=== PATIENT | male | born 1960 | race Caucasian/White ===

== ENCOUNTER 2020-10-22 13:23 | Observation (INO) | payer MEDICAID ==
[2020-10-22 13:53] LABS: BASOPHILS # (AUTO) 0.1 10^3/uL (0.0-0.1); BASOPHILS % (AUTO) 0.9 %; EOSINOPHILS # (AUTO) 0.3 10^3/uL (0.0-0.7); EOSINOPHILS % (AUTO) 3.1 %; HCT - HEMATOCRIT 46.2 % (42.0-52.0); HGB - HEMOGLOBIN 14.8 g/dL (14.0-18.0); LYMPHOCYTES # (AUTO) 2.5 10^3/uL (1.5-3.5); LYMPHOCYTES % (AUTO) 29.7 %; MEAN CORPUSCULAR HEMOGLOBIN 26.2 pg (27.0-31.0); MEAN CORPUSCULAR VOLUME 81.8 fL (80.0-94.0); MEAN PLATELET VOLUME 9.3 fL (7.4-11.4); MONOCYTES # (AUTO) 0.7 10^3/uL (0.0-1.0); NEUTROPHILS % (AUTO) 58.1 %; PLT - PLATELET COUNT 429 10^3/uL (130-450); RED BLOOD COUNT 5.65 10^6/uL (4.70-6.10); RED CELL DISTRIBUTION WIDTH 16.6 % (12.0-15.0); WHITE BLOOD COUNT 8.5 x10^3/uL (4.8-10.8)
[2020-10-22 14:05] LABS: ALBUMIN 4.2 g/dL (3.2-5.5); ALBUMIN/GLOBULIN RATIO 1.4 (1.0-2.2); BILIRUBIN,TOTAL 0.4 mg/dL (0.2-1.0); CALCIUM 9.2 mg/dL (8.5-10.3); CREATININE 0.8 mg/dL (0.6-1.2); POTASSIUM 3.8 mmol/L (3.5-5.0); TOTAL PROTEIN 7.3 g/dL (6.7-8.2)
--- NOTE | 2020-10-22 15:15 | ED Physician Documentation ---
PD HPI ABD PAIN - Stated complaint Stated Complaint: ABD PAIN - Chief complaint Chief Complaint: Abd Pain - History obtained from History obtained from: Patient - History of Present Illness Timing - onset: How many weeks ago (3) Timing - duration: Weeks (3) Timing - details: Gradual onset, Waxing and waning Pain level max: 10 Pain level now: 4 Quality: Aching, Pain Location: No: All over / everywhere, RUQ, Epigastric, LUQ, Periumbilical, RLQ, Suprapubic, LLQ, Other Improved by: Other (nothing) Worsened by: Eating Associated symptoms: Nausea, Constipation. No: Vomiting, Hematemesis, Diarrhea, Melena, Hematochezia, Dysuria, Hematuria Recently seen: Not recently seen - Additional information Additional information: Patient is a 59-year-old male who presents to the emergency department with epigastric abdominal pain, intermittent for the past 3 weeks. Worse with eating and drinking, nothing makes it better. Intermittent nausea but no vomiting. No diarrhea. Has chronic constipation. Patient does smoke, denies any significant alcohol use. Does not use any anti-inflammatories. No history of ulcers. Pain is nonradiating. Review of Systems Ten Systems: 10 systems reviewed and negative Respiratory: denies: Cough GI: reports: Nausea, Constipation. denies: Vomiting, Diarrhea Skin: denies: Rash Musculoskeletal: denies: Neck pain, Back pain Neurologic: denies: Headache PD PAST MEDICAL HISTORY - Past Medical History Past Medical History: Yes Psych: Depression - Past Surgical History Past Surgical History: No - Present Medications Home Medications: Ambulatory Orders Medication Instructions Recorded Confirmed Fluoxetine HCl [Prozac] 1 tab PO DAILY 10/22/20 10/22/20 - Allergies Allergies/Adverse Reactions: Allergies Allergy/AdvReac Type Severity Reaction Status Date / Time No Known Drug Allergies Allergy Verified 10/22/20 13:27 - Living Situation Living Arrangement: reports: At home - Social History Does the pt smoke?: Yes Does the pt have substance abuse?: No - Family History Family history: reports: Non contributory PD ED PE NORMAL - Vitals Vital signs reviewed: Yes - General General: Alert and oriented X 3, No acute distress - HEENT HEENT: PERRL, Moist mucous membranes - Neck Neck: Supple, no meningeal sign - Cardiac Cardiac: RRR, Strong equal pulses - Respiratory Respiratory: No respiratory distress, Clear bilaterally - Abdomen Abdomen: Soft, Non distended, Other (Mild tenderness to palpation epigastric and right upper quadrant. No peritoneal signs.) - Back Back: No CVA TTP - Derm Derm: Warm and dry - Extremities Extremities: No edema - Neuro Neuro: Alert and oriented X 3 - Psych Psych: Normal mood, Normal affect Results - Vitals Vitals: Vital Signs - 24 hr 10/22/20 10/22/20 10/22/20 13:28 16:09 17:50 Temperature 36.5 C 36.5 C Heart Rate 76 60 67 Respiratory 16 16 16 Rate Blood Pressure 160/100 H 130/72 149/86 H O2 Saturation 98 100 98 Oxygen O2 Source Room air - Labs Labs: Laboratory Tests 10/22/20 10/22/20 10/22/20 13:32 13:48 13:48 WBC 8.5 RBC 5.65 Hgb 14.8 Hct 46.2 MCV 81.8 MCH 26.2 L MCHC 32.0 RDW 16.6 H Plt Count 429 MPV 9.3 Neut # (Auto) 5.0 Lymph # (Auto) 2.5 [place] # (Auto) 0.7 Eos # (Auto) 0.3 Baso # (Auto) 0.1 Absolute Nucleated RBC 0.00 Nucleated RBC % 0.0 Sodium 139 Potassium 3.8 Chloride 104 Carbon Dioxide 26 Anion Gap 9.0 BUN 9 Creatinine 0.8 Estimated GFR (MDRD) 99 Glucose 98 Calcium 9.2 Total Bilirubin 0.4 AST 39 ALT 23 Alkaline Phosphatase 103 Total Protein 7.3 Albumin 4.2 Globulin 3.1 Albumin/Globulin Ratio 1.4 Lipase 38 Urine Color YELLOW Urine Clarity CLEAR Urine pH 6.5 Ur Specific Landis 1.020 Urine Protein NEGATIVE Urine Glucose (UA) NEGATIVE Urine Ketones NEGATIVE Urine Occult Blood NEGATIVE Urine Nitrite NEGATIVE Urine Bilirubin NEGATIVE Urine Urobilinogen 0.2 (NORMAL) Ur Leukocyte Esterase NEGATIVE Ur Microscopic Review NOT INDICATED Urine Culture Comments NOT INDICATED Nasal Adenovirus (PCR) Nasal B. parapertussis DNA (PCR) Nasal Coronavir 229E PCR Nasal Coronavir HKU1 PCR Nasal Coronavir NL63 PCR Nasal Coronavir OC43 PCR Nasal Enterovir/Rhinovir PCR Nasal Influenza B PCR Nasal Influenza A PCR Nasal Parainfluen 1 PCR Nasal Parainfluen 2 PCR Nasal Parainfluen 3 PCR Nasal Parainfluen 4 PCR Nasal RSV (PCR) Nasal B.pertussis DNA PCR Nasal C.pneumoniae (PCR) Gus Human Metapneumo PCR Nasal M.pneumoniae (PCR) Nasal SARS-CoV-2 (PCR) 10/22/20 17:47 WBC RBC Hgb Hct MCV MCH MCHC RDW Plt Count MPV Neut # (Auto) Lymph # (Auto) [place]ar # (Auto) Eos # (Auto) Baso # (Auto) Absolute Nucleated RBC Nucleated RBC % Sodium Potassium Chloride Carbon Dioxide Anion Gap BUN Creatinine Estimated GFR (MDRD) Glucose Calcium Total Bilirubin AST ALT Alkaline Phosphatase Total Protein Albumin Globulin Albumin/Globulin Ratio Lipase Urine Color Urine Clarity Urine pH Ur Specific Landis Urine Protein Urine Glucose (UA) Urine Ketones Urine Occult Blood Urine Nitrite Urine Bilirubin Urine Urobilinogen Ur Leukocyte Esterase Ur Microscopic Review Urine Culture Comments Nasal Adenovirus (PCR) NOT DETECTED Nasal B. parapertussis DNA (PCR) NOT DETECTED Nasal Coronavir 229E PCR NOT DETECTED Nasal Coronavir HKU1 PCR NOT DETECTED Nasal Coronavir NL63 PCR NOT DETECTED Nasal Coronavir OC43 PCR NOT DETECTED Nasal Enterovir/Rhinovir PCR NOT DETECTED Nasal Influenza B PCR NOT DETECTED Nasal Influenza A PCR NOT DETECTED Nasal Parainfluen 1 PCR NOT DETECTED Nasal Parainfluen 2 PCR NOT DETECTED Nasal Parainfluen 3 PCR NOT DETECTED Nasal Parainfluen 4 PCR NOT DETECTED Nasal RSV (PCR) NOT DETECTED Nasal B.pertussis DNA PCR NOT DETECTED Nasal C.pneumoniae (PCR) NOT DETECTED Gus Human Metapneumo PCR NOT DETECTED Nasal M.pneumoniae (PCR) NOT DETECTED Nasal SARS-CoV-2 (PCR) NOT DETECTED - Rads (name of study) CT abd/pelvis Radiology: Final report received, EMP read contemporaneously, See rad report RUQ US Radiology: Final report received, EMP read contemporaneously, See rad report PD MEDICAL DECISION MAKING - ED course Complexity details: reviewed results, re-evaluated patient, considered differential, d/w patient, d/w rewards consultant ED course: 59-year-old male with abdominal pain. Found to have a spiculated right lower lobe mass with additional nodules. Appears to be consistent with malignancy also has nodules within the lungs consistent with metastatic disease. Likely metastatic disease in the liver as well. Patient does have cholelithiasis, there is gallbladder wall thickening, possible cholecystitis. Discussed the case with Dr. Reeder, general surgery who came and evaluated the patient in the emergency department. Will place on antibiotics and place in observation for HIDA scan tomorrow and monitoring of his abd pain. This document was made in part using voice recognition software. While efforts are made to proofread this document, sound alike and grammatical errors may occur. CT A/P IMPRESSION: 1. Spiculated right lower lobe mass with adjacent nodules as described above. Overall appearance is most consistent with malignancy, such as primary lung malignancy. In addition, multiple additional nodules are identified within visualized portions of the lungs consistent with metastatic disease. 2. Multiple focal and confluent areas of low attenuation and abnormal enhancement are noted within the liver. Even above findings, appearance is most consistent with metastatic disease. 3.. Diverticulosis. RUQ US: IMPRESSION: 1. Cholelithiasis with gallbladder wall thickening. No pericholecystic fluid. Findings are equivocal for acute cholecystitis, and correlation with clinical exam findings and laboratory values is recommended. 2. Heterogeneous masslike lesions in the liver are partially imaged, but are suspicious for metastatic disease. These were also seen on CT of the abdomen/pelvis performed earlier the same day. Departure - Departure Disposition: ED Place in Observation Clinical Impression: Right upper quadrant pain, Acute cholecystitis, Lung mass Metastatic disease Qualifiers: Area of secondary neoplastic involvement: unspecified site Qualified Code(s): C79.9 - Secondary malignant neoplasm of unspecified site Condition: Stable Discharge Date/Time: 10/22/20 19:01
[2020-10-22] MEDS ORDERED: IOVERSOL 320 100 ML VIAL IVP ONE (15:16)
[2020-10-22 15:33] LABS: BILIRUBIN,URINE NEGATIVE (NEGATIVE); GLUCOSE, URINE (UA) NEGATIVE (NEGATIVE); KETONES,URINE (UA) NEGATIVE (NEGATIVE); LEUKOCYTE ESTERASE, URINE NEGATIVE (NEGATIVE); NITRITE,URINE NEGATIVE (NEGATIVE); OCCULT BLOOD,URINE NEGATIVE (NEGATIVE); PH,URINE 6.5 PH (5.0-7.5); PROTEIN,URINE NEGATIVE (NEGATIVE); UROBILINOGEN,URINE 0.2 (NORMAL) E.U./dL (NORMAL)
[2020-10-22 15:36] LABS: CLARITY,URINE CLEAR (CLEAR)
--- NOTE | 2020-10-22 16:46 | CT Report ---
PROCEDURE: Abdomen/Pelvis W INDICATIONS: abd pain, epigastric x 3 weeks CONTRAST: IV CONTRAST: Optiray 320 ml: 100 PO CONTRAST: *NO PO CONTRAST TECHNIQUE: After the administration of IV contrast, 5 mm thick sections acquired from the diaphragms to the symp hysis. 5 mm thick coronal and sagittal reformats were acquired. For radiation dose reduction, the f ollowing was used: automated exposure control, adjustment of mA and/or kV according to patient size. COMPARISON: None. FINDINGS: Image quality: Excellent. ABDOMEN: Lung bases: There is a spiculated right lower lobe mass measuring 3.5 x 2.4 cm. Additional smaller no dules are identified adjacent to the mass. In addition, nodules are also identified within the partia lly visualized left upper lobe and right middle lobe. Multiple nodules are also present within the le ft lower lobe the largest on series 4 image 21 measuring approximately 7 mm. Heart size is normal. Solid organs: Liver is enlarged. Liver demonstrates multiple focal as well as confluent areas of low attenuation the largest in the anterior liver measuring 2.6 x 2.6 cm. Gallbladder demonstrates ill-de fined areas of increased density within the lumen without wall thickening. Biliary system is non dil ated. Pancreas enhances normally. No adrenal nodules. Kidneys demonstrate normal size and enhancem ent, without hydronephrosis. Simple right renal cyst is noted. Peritoneum and bowel: Bowel loops demonstrate normal wall thickness and caliber. No free fluid or a ir. Scattered colonic diverticula are present. Appendix is within normal limits and demonstrates mil d contrast enhancement. Nodes and vessels: No retroperitoneal or mesenteric adenopathy by size criteria. Aorta and inferior vena cava are normal in size. Miscellaneous: No ventral hernias. Mild hiatal hernia is present. PELVIS: Genitourinary: Bladder wall thickness is normal. Miscellaneous: No inguinal hernias or adenopathy. Bones: No suspicious bony lesions. No vertebral body compression fractures. IMPRESSION: 1. Spiculated right lower lobe mass with adjacent nodules as described above. Overall appearance is m ost consistent with malignancy, such as primary lung malignancy. In addition, multiple additional nod ules are identified within visualized portions of the lungs consistent with metastatic disease. 2. Multiple focal and confluent areas of low attenuation and abnormal enhancement are noted within th e liver. Even above findings, appearance is most consistent with metastatic disease. 3. Diverticulosis. Reviewed by: Jen Haile MD on 10/22/2020 4:44 PM PDT Approved by: Jen Haile MD on 10/22/2020 4:44 PM PDT Station ID: [id number]
--- NOTE | 2020-10-22 17:24 | Ultrasound Report ---
PROCEDURE: Abdomen Limited INDICATIONS: RUQ abd pain x 3 weeks TECHNIQUE: Real-time focused scanning was performed of the abdomen, with image documentation. COMPARISON: CT abdomen/pelvis performed earlier the same day. FINDINGS: The liver appears heterogeneous and contains multiple masslike lesions, as seen on CT performed earli er the same day. The liver is incompletely evaluated on this exam that is tailored for evaluation of the gallbladder. Tiny echogenic gallstones are seen in the gallbladder fundus. There is diffuse gallbladder wall thick ening to 5 mm. No pericholecystic fluid is seen. Sonographic Sylvester sign is negative. The common hepatic duct and common bile duct are normal in size. IMPRESSION: 1. Cholelithiasis with gallbladder wall thickening. No pericholecystic fluid. Findings are equivocal for acute cholecystitis, and correlation with clinical exam findings and laboratory values is recomm ended. 2. Heterogeneous masslike lesions in the liver are partially imaged, but are suspicious for metastat ic disease. These were also seen on CT of the abdomen/pelvis performed earlier the same day. Preliminary findings were conveyed to the ordering provider, Dr. Salazar, by the travel trailer components assembler immediate ly following the examination. Reviewed by: Rodolfo Hubbard MD on 10/22/2020 4:23 PM [facility] Approved by: Rodolfo Hubbard MD on 10/22/2020 4:23 PM LIZ Station ID: [id number]
[2020-10-22] MEDS ORDERED: PIPERACILLIN/TAZOBACTAM 3.375 GM in SODIUM CHLORIDE 0.9% MINIBAG 100 ML IV STA (17:37)
--- NOTE | 2020-10-22 18:33 | HISTORY & PHYSICAL EXAMINATION ---
Chief Complaint - Chief Complaint Chief Complaint: 3 weeks epigastric right upper quadrant pain with loss of appetite History of Present Illness - Admitted From Admitted From:: ED - History Obtained From Records Reviewed: yes History obtained from: pt Exam Limitations: none - History of Present Illness HPI Comment/Other: 3 weeks of epigastric pain and loss of appetite. Distant history of pneumonia and long standing history mild lung troubles without significant asthma or change. Seen in the ED. Imaging concerning for metastatic lung cancer to the liver. Possible gallbladder inflammation. History - Past Medical History Psych: reports: Depression - Family & Social History Living arrangement: At home Meds/Allgy - Home Medications Home Medications: Ambulatory Orders Medication Instructions Recorded Confirmed Fluoxetine HCl [Prozac] 1 tab PO DAILY 10/22/20 10/22/20 - Allergies Allergies/Adverse Reactions: Allergies Allergy/AdvReac Type Severity Reaction Status Date / Time No Known Drug Allergies Allergy Verified 10/22/20 13:27 Review of Systems - Other Findings Other Findings: 10 pt ros as above otherwise unremarkable no significant weight loss Exam - Vital Signs Reviewed Vital Signs: Yes Vital Signs: Vital Signs x48h Temp Pulse Resp BP Pulse Ox 10/22/20 17:50 67 16 149/86 H 98 10/22/20 16:09 36.5 C 60 16 130/72 100 10/22/20 13:28 36.5 C 76 16 160/100 H 98 - Physical Exam General Appearance: positive: No acute distress, Alert Eyes Bilateral: positive: PERRL, EOMI, No scleral icterus ENT: positive: No signs of dehydration Neck: positive: No JVD Respiratory: positive: No respiratory distress, Breath sounds nml Cardiovascular: positive: Regular rate & rhythm Abdomen: positive: Tenderness (mild epigastric ruq) Neurologic/Psychiatric: positive: Oriented x3 Conclusion/Plan - Problem List (1) Right upper quadrant pain Conclusion/Plan: He has had significant right upper quadrant / epigastric abdominal pain with loss of appetite x 3 weeks. possible metastatic lung cancer without pulmonary symptoms. Plan admit for pain management, ivf and further work up. Plan ct chest, abdomen/ pelvis with contrast and hida scan. If hida scan shows no filling plan cholecystectomy with possible liver biopsy. - Lab Results Fish Bones: 10/22/20 13:48 10/22/20 13:48 - Diagnostic Imaging Results Diagnostic Imaging Results: positive: Read independently (small gallstones with no apparent gallbladder obstruction. appearance of signicant metastatic liver disease)
[2020-10-22] MEDS ORDERED: ONDANSETRON 4 MG/2 ML VIAL IVP PRN (18:38)
[2020-10-22] MEDS ORDERED: HYDROmorphone 0.5 MG/0.5 ML SYRINGE IVP PRN (18:38)
[2020-10-22] MEDS ORDERED: SODIUM CHLORIDE FLUSH 0.9% 10 ML SYRINGE IVP PRN (18:38)
[2020-10-22] MEDS ORDERED: ZOLPIDEM 5 MG TABLET PO PRN (18:38)
[2020-10-22] MEDS ORDERED: PROCHLORPERAZINE 10 MG/2 ML VIAL IVP PRN (18:38)
[2020-10-22] MEDS ORDERED: ACETAMINOPHEN 325 MG TABLET PO PRN (18:38)
[2020-10-22] MEDS ORDERED: ONDANSETRON ODT 4 MG TABLET TL PRN (18:38)
[2020-10-22 18:53] LABS: B. PARAPERTUSSIS- RESP PCR PAN NOT DETECTED; B. PERTUSSIS- RESP PCR PANEL NOT DETECTED; C. PNEUMONIAE- RESP PCR PANEL NOT DETECTED; CORONAVIRUS 229E-RESP PCR NOT DETECTED; CORONAVIRUS HKU1-RESP PCR NOT DETECTED; CORONAVIRUS NL63-RESP PCR NOT DETECTED; CORONAVIRUS OC43-RESP PCR NOT DETECTED; HUMAN METAPNEUMOVIRUS NOT DETECTED; INFLUENZA A- RESP PCR PANEL NOT DETECTED; INFLUENZA B - RESP PCR PANEL NOT DETECTED; M. PNEUMONIAE- RESP PCR PANEL NOT DETECTED; PARAINFLUENZA VIRUS 1 NOT DETECTED; PARAINFLUENZA VIRUS 2 NOT DETECTED; PARAINFLUENZA VIRUS 3 NOT DETECTED; PARAINFLUENZA VIRUS 4 NOT DETECTED; RHINOVIRUS/ENTEROVIRUS NOT DETECTED; RSV- RESP PCR PANEL NOT DETECTED; SARS-CoV-2 -RESP PCR PANEL NOT DETECTED
[2020-10-22] MEDS: D5.45NS W/20 MEQ KCL 1,000 ML IV SCH (19:37)
[2020-10-22] MEDS: IOVERSOL 320 100 ML VIAL IVP ONE (20:54)
[2020-10-23] MEDS: D5.45NS W/20 MEQ KCL 1,000 ML IV SCH ×3 (02:53→22:40)
[2020-10-23] MEDS: SODIUM CHLORIDE FLUSH 0.9% 10 ML SYRINGE IVP SCH ×3 (02:55→17:55)
[2020-10-23] MEDS ORDERED: FLUoxetine 10 MG CAPSULE PO SCH (09:00)
[2020-10-23] MEDS: HYDROcod/ACETAM 5/325 MG TABLET PO PRN (09:46)
[2020-10-23] MEDS ORDERED: MORPHINE 2 MG/ML CARPUJECT IVP STA (16:12)
[2020-10-23] MEDS ORDERED: IOVERSOL 320 100 ML VIAL IVP ONE (17:09)
--- NOTE | 2020-10-23 17:15 | PROVIDER PROGRESS NOTE ---
Subjective - Subjective Pt reports feeling: No change (mild upper abdominal discomfort) Objective - Vital Signs/Intake & Output Reviewed Vital Signs: Yes Vital Signs: Vital Signs x48h Temp Pulse Resp BP Pulse Ox 10/23/20 13:00 36.5 C 51 L 16 123/74 97 Intake & Output: Intake & Output 10/20/20 10/21/20 10/22/20 10/23/20 23:59 23:59 23:59 23:59 Intake Total 100 3350.000 Balance 100 3350.000 - Objective General Appearance: positive: No acute distress, Alert Eyes Bilateral: positive: PERRL, EOMI, No scleral icterus Neck: positive: No JVD Respiratory: positive: No respiratory distress Abdomen: positive: No distention Neurologic/Psychiatric: positive: Oriented x3 - Lab Results Fish Bones: 10/22/20 13:48 10/22/20 13:48 Other Labs: Lab Results x24hrs 10/22/20 Range/Units 17:47 Nasal Adenovirus (PCR) NOT DETECTED Nasal B. parapertussis DNA (PCR) NOT DETECTED Nasal Coronavir 229E PCR NOT DETECTED Nasal Coronavir HKU1 PCR NOT DETECTED Nasal Coronavir NL63 PCR NOT DETECTED Nasal Coronavir OC43 PCR NOT DETECTED Nasal Enterovir/Rhinovir PCR NOT DETECTED Nasal Influenza B PCR NOT DETECTED Nasal Influenza A PCR NOT DETECTED Nasal Parainfluen 1 PCR NOT DETECTED Nasal Parainfluen 2 PCR NOT DETECTED Nasal Parainfluen 3 PCR NOT DETECTED Nasal Parainfluen 4 PCR NOT DETECTED Nasal RSV (PCR) NOT DETECTED Nasal B.pertussis DNA PCR NOT DETECTED Nasal C.pneumoniae (PCR) NOT DETECTED Gus Human Metapneumo PCR NOT DETECTED Nasal M.pneumoniae (PCR) NOT DETECTED Nasal SARS-CoV-2 (PCR) NOT DETECTED Assessment/Plan - Problem List (1) Right upper quadrant pain Impression: He is currently having his hida scan. If his gallbladder drains surgery is not indicated and further work up for possible metastatic cancer is recommend. He has not been doing well at home with poor appetite and pain. Urgent work up is recommended to allow for more urgent treatment. If metastatic cancer is confirmed with further imaging plan oncology consult and IR consult for biopsy
--- NOTE | 2020-10-23 17:43 | Nuclear Medicine Report ---
PROCEDURE: Hepatobiliary HIDA w/ Rx INDICATIONS: possible gallbladder obstruction RADIOPHARMACEUTICAL: 5.3 mCi Tc-99m meprofenin i.v. TECHNIQUE: Following intravenous administration of Tc-99m meprofenin, sequential anterior abdominal images were obtained. Sequential imaging was continued for 30 minutes after the start of CCK infusio n. Gallbladder ejection fraction was not calculated because the gallbladder did not receive excreted radioisotope over the course of the. COMPARISON: Prior CT scanning documenting the gallbladder to be in expected position, 10/22/2020. FINDINGS: Biliary scan: There is mildly heterogeneous tracer uptake and excretion by the liver in this patient with CT-documented hepatic metastatic disease.. There is normal visualization of the intrahepatic d ucts, common bile duct, but the gallbladder was not visualized. There is normal tracer transit into the duodenum and thereafter into the small bowel. IMPRESSION: 1. Near-normal hepatocellular phase of the imaging, in this patient with CT documented multifocal hep atic metastatic disease. This produces mild heterogeneity in the hepatocellular phase of liver imagin g. 2. . Normal hepatocellular excretion into the common duct and at no point over the course of the exam ination was a normal-appearing gallbladder seen. The gallbladder has been documented as being in an e xpected position by CT scanning recently performed. It remains possible that metastatic disease has i mpingement on the gallbladder outflow, and on review of the prior CT scanning no calcified gallstone can be seen within the gallbladder lumen.. Reviewed by: Eze Pradhan MD on 10/23/2020 5:42 PM PDT Approved by: Eze Pradhan MD on 10/23/2020 5:42 PM PDT Station ID: [id number]
[2020-10-23] MEDS: IOVERSOL 320 100 ML VIAL IVP ONE (23:26)
[2020-10-24] MEDS: D5.45NS W/20 MEQ KCL 1,000 ML IV SCH ×3 (06:13→22:28)
[2020-10-24] MEDS: SODIUM CHLORIDE FLUSH 0.9% 10 ML SYRINGE IVP SCH ×3 (06:14→16:29)
[2020-10-24] MEDS: HYDROcod/ACETAM 5/325 MG TABLET PO PRN ×2 (08:13→20:47)
[2020-10-24] MEDS: FLUoxetine 10 MG CAPSULE PO SCH (08:13)
[2020-10-24] MEDS: DOCUSATE SODIUM 250 MG CAPSULE PO SCH (08:13)
--- NOTE | 2020-10-24 09:47 | CT Report ---
PROCEDURE: CHEST W INDICATIONS: appearance of lung cancer on CT abd CONTRAST: IV CONTRAST: Optiray 320 ml: 100 PO CONTRAST: *NO PO CONTRAST TECHNIQUE: After the administration of intravenous contrast, images were acquired from the pulmonary apices to t he posterior costophrenic angles. Multiplanar MIP reformats were acquired. For radiation dose reduc tion, the following was used: automated exposure control, adjustment of mA and/or kV according to pa tient size. COMPARISON: CT abdomen/pelvis one day ago reviewed.. FINDINGS: Image quality: Excellent. Lungs and pleura: No acute air space opacities are seen that would suggest pneumonia. Rather, brandon us bilateral pulmonary nodules that are small in size ranging from several millimeters to slightly ov er 1 cm are present bilaterally, upper and lower lungs, in addition to a dominant 3.5 cm peripheral r ight lower lobe lung mass, abutting the pleural surface but not invading the chest wall. This is best seen on CT series 12 image 273.. No pleural effusions or pneumothorax. Central and peripheral airw ays are patent and normal in caliber. Mediastinum: Heart size is normal. No pericardial effusion. No mediastinal or hilar adenopathy by size criteria. Thoracic aorta and central pulmonary arteries are normal in size. Esophagus is amish l in caliber. No hiatal hernia. Bones and chest wall: There is mild heterogeneity of the radiodensity of the axial skeleton, and a de nsely sclerotic bone lesion is seen at the junction of the upper and middle thirds of the thoracic sp ine. By appearance that represents a osteoblastic metastatic bone lesion. No vertebral body compress ion fractures. No axillary or supraclavicular adenopathy by size criteria. The thyroid is normal in size and there are no incidental findings.. Abdomen: Visualized upper abdominal solid organs appear normal except for multifocal hepatic metasta tic disease seen by CT scanning of the abdomen/pelvis yesterday. Upper abdominal bowel loops are nor mal in caliber. IMPRESSION: Dominant 3.5 cm far peripheral right lower lobe lung mass abutting the pleural surface without interv ening lung parenchyma, which appears accessible for percutaneous CT-guided biopsy of that mass, at lo w risk. Numerous additional lung lesions are present comprised of small ovoid and rounded masses, cooper aterally. This appears to represent relatively extensive pulmonary metastatic disease. Additionally, there is a finding previously documented one day ago of multifocal hepatic presumed met astatic disease, without associated biliary distention. No ascites or pleural effusions are found. No mediastinal or hilar adenopathy is seen. Findings were discussed with the ordering surgeon, Dr. Reeder, and lung mass biopsy at the right lowe r lobe is anticipated for 10/25/2020. Lung biopsy approach is considered significantly safer for biops y than the liver lesions, especially given the position and size of the lung mass discussed above. Reviewed by: Eze Pradhan MD on 10/24/2020 9:46 AM PDT Approved by: Eze Pradhan MD on 10/24/2020 9:46 AM PDT Station ID: [id number]
--- NOTE | 2020-10-24 09:48 | PROVIDER PROGRESS NOTE ---
Subjective - Subjective Pt reports feeling: No change (still having epigastric discomfort) Objective - Vital Signs/Intake & Output Reviewed Vital Signs: Yes Vital Signs: Vital Signs x48h Temp Pulse Resp BP Pulse Ox 10/24/20 07:38 37 C 58 L 17 130/74 95 10/24/20 05:00 37.2 C 61 14 103/56 L 99 Intake & Output: Intake & Output 10/21/20 10/22/20 10/23/20 10/24/20 23:59 23:59 23:59 23:59 Intake Total 100 4388.333 943.75 Balance 100 4388.333 943.75 - Objective General Appearance: positive: No acute distress, Alert Eyes Bilateral: positive: PERRL, EOMI, No scleral icterus Respiratory: positive: No respiratory distress Abdomen: positive: Tenderness (epigastric/ ruq) Neurologic/Psychiatric: positive: Oriented x3 - Lab Results Fish Bones: 10/22/20 13:48 10/22/20 13:48 - Diagnostic Imaging Diagnostic Imaging Results: positive: Other (work up shows functional gallbladder and what appears to be most likely metastatic lung cancer to liver) Assessment/Plan - Problem List (1) Right upper quadrant pain Impression: He has a functional gallbladder. He appears to have metastatic lung cancer to liver as a cause for his discomfort. Diet as tolerated. Continue ivf. plan npo after midnight and lung biopsy tomorrow.
--- NOTE | 2020-10-24 10:21 | CT Report ---
PROCEDURE: ABDOMEN W/WO INDICATIONS: appearance metastatic cancer; liver protocol CONTRAST: IV CONTRAST: Optiray 320 ml: 100 PO CONTRAST: *NO PO CONTRAST TECHNIQUE: Noncontrast 5 mm thick sections acquired from the diaphragms to the symphysis. 5 mm coronal and sagi ttal reformats were then performed. For radiation dose reduction, the following was used: automated exposure control, adjustment of mA and/or kV according to patient size. COMPARISON: CT abdomen and pelvis dated 10/22/2020. FINDINGS: Image quality: Excellent. Lung bases: As before, there is a spiculated right lower lobe lung mass which abuts the pleura, measu ring approximately 3.2 cm. This may be a primary bronchogenic malignancy. Additionally, numerous bila teral basilar pulmonary nodules are present, consistent with pulmonary metastatic disease. Heart size is normal. Adrenal glands: No masses Liver: As before, there is extensive liver metastatic disease. This includes defined masses as well a s an infiltrative appearance in the left lobe. Index liver lesions are as follows: Left lobe, image 21/4, 2.8 cm. Posterior segment, right lobe, image 29/4, 3.1 cm. Other solid organs: Spleen is unremarkable. Gallbladder has mild diffuse wall thickening and wall tin y gallstones. Biliary system is non dilated. Pancreas enhances normally. Kidneys are normal in siz e and enhancement. No hydronephrosis or nephrolithiasis. Peritoneum and bowel: Unenhanced bowel loops are normal in caliber and wall thickness. No free flui d or air. Nodes and vessels: No retroperitoneal or mesenteric adenopathy by size criteria. Aorta and inferior vena cava are normal in size. Miscellaneous: No ventral hernias. Bones: No suspicious bony lesions. No vertebral body compression fractures. IMPRESSION: 1. There is a peripheral lung mass which may be a primary bronchogenic carcinoma, abutting the pleura , and right lower lobe. This would be amenable to CT-guided biopsy for tissue diagnosis. 2. Multiple bilateral pulmonary nodules are evidence of pulmonary metastatic disease. 3. Extensive metastatic disease to the liver. Index lesions as described above. Reviewed by: Federico Espino MD on 10/24/2020 10:20 AM PDT Approved by: Federico Espino MD on 10/24/2020 10:20 AM PDT Station ID: [id number]
[2020-10-25] MEDS: SODIUM CHLORIDE FLUSH 0.9% 10 ML SYRINGE IVP SCH ×3 (00:12→16:26)
[2020-10-25] MEDS: HYDROcod/ACETAM 5/325 MG TABLET PO PRN ×2 (05:49→13:28)
[2020-10-25] MEDS: D5.45NS W/20 MEQ KCL 1,000 ML IV SCH (05:49)
[2020-10-25] MEDS: FLUoxetine 10 MG CAPSULE PO SCH (08:47)
[2020-10-25] MEDS: DOCUSATE SODIUM 250 MG CAPSULE PO SCH (08:48)
[2020-10-25] MEDS ORDERED: SENNA 8.6 MG TABLET PO SCH (09:00)
[2020-10-25 09:25] LABS: INR 1.2 (0.8-1.2); PT - PROTHROMBIN TIME 13.5 secs (9.9-12.6)
[2020-10-25 09:33] LABS: PARTIAL THROMBOPLASTIN TIME 31.8 secs (24.9-33.3)
[2020-10-25] MEDS ORDERED: BUFFERED LIDOCAINE 10 ML SYRINGE ONE ×2 (10:31→12:10)
[2020-10-25] MEDS ORDERED: NALOXONE 0.4 MG/ML VIAL ONE (10:51)
[2020-10-25] MEDS ORDERED: MIDAZOLAM 2 MG/2 ML VIAL ONE (10:52)
[2020-10-25] MEDS ORDERED: fentaNYL 100 MCG/2 ML VIAL ONE (10:52)
[2020-10-25] MEDS ORDERED: FLUMAZENIL 0.1 MG/1 ML 5 ML MDV IVP ONE (10:52)
[2020-10-25] MEDS ORDERED: SODIUM CHLORIDE 0.9% 1,000 ML IV ONE (13:07)
--- NOTE | 2020-10-25 13:16 | XRAY Report ---
PROCEDURE: Chest 1 View X-Ray INDICATIONS: POST LUNG BIOPSY TECHNIQUE: One view of the chest was acquired. COMPARISON: CT chest dated 10/23/2020 FINDINGS: Surgical changes and devices: None. Lungs and pleura: No pneumothorax post right lung biopsy. Right basilar lung mass. Mild diffuse inter stitial change. Mediastinum: Mediastinal contours appear normal. Heart size is normal. Bones and chest wall: No suspicious bony lesions. Overlying soft tissues appear unremarkable. IMPRESSION: No evidence of pneumothorax post right lung biopsy. Reviewed by: Federico Espino MD on 10/25/2020 1:14 PM PDT Approved by: Federico Espino MD on 10/25/2020 1:14 PM PDT Station ID: [id number]
[2020-10-25] MEDS ORDERED: HYDROcod/ACETAM 5/325 MG TABLET ONE (13:29)
--- NOTE | 2020-10-25 15:25 | XRAY Report ---
PROCEDURE: Chest 1 View X-Ray INDICATIONS: 2HR POST LUNG BIOPSY TECHNIQUE: One view of the chest was acquired. COMPARISON: 10/25/2020 at 1259 hours FINDINGS: Surgical changes and devices: None. Lungs and pleura: No pleural effusions or pneumothorax. Mass in the right lung base is stable. Promi nence of interstitium is stable. Mediastinum: Mediastinal contours appear normal. Heart size is normal. Bones and chest wall: No suspicious bony lesions. Overlying soft tissues appear unremarkable. IMPRESSION: No pneumothorax following right lung mass biopsy. Reviewed by: Estrellita Kimbrough MD, PhD on 10/25/2020 3:24 PM PDT Approved by: Estrellita Kimbrough MD, PhD on 10/25/2020 3:24 PM PDT Station ID: [id number]
[2020-10-25 16:21] VITALS: BP 133/72
--- NOTE | 2020-10-25 16:27 | CT Report ---
PROCEDURE: RT LUNG BX PERC Sedation analgesia for > 30 minutes (see chart notes) INDICATIONS: LUNG MASS TECHNIQUE: The indications, alternatives, benefits, risks, and possible complications of the procedure were comm unicated to the patient. Informed written consent from the patient was obtained and placed in the art. Continuous EKG and hemodynamic monitoring was started by trained personnel. For radiation dose reduction, the following was used: automated exposure control, adjustment of mA and/or kV according to patient size. The patient was brought to the CT suite and community organization worker spiral CT imaging was performed with localization g rid. The appropriate site for percutaneous access to the biopsy target was marked, was prepped and d raped sterilely, and was infused with local anaesthesia. Under CT guidance, a core biopsy trocar and needle set was advanced to the biopsy target, and specimen(s) were obtained. The trocar and needle were then removed, and the patient was sent for post-procedure monitoring. COMPARISON: CT chest dated 10/24/2020 FINDINGS: Biopsy site: Right lower lobe lung mass Needle: 18 gauge biopsy needle with introducer trocar. Number of passes: 2 Medications: 1% lidocaine for local anaesthesia. IV Fentanyl and Versed for conscious sedation for greater than 30 minutes (see nursing record). Complications: None. IMPRESSION: Successful CT-guided biopsy of right lower lobe lung mass. Reviewed by: Federico Espino MD on 10/25/2020 4:26 PM PDT Approved by: Federico Espino MD on 10/25/2020 4:26 PM PDT Station ID: [id number]
--- NOTE | 2020-10-25 16:29 | Discharge Plan ---
Discharge Plan Problem Reviewed?: Yes Disposition: Home, Self Care Condition: Good Prescriptions: HYDROcod/ACETAM 5/325 [[place] 5/325] 1 each PO Q6H PRN #40 tablet PRN Reason: Pain Diet: Regular Activity Restrictions: No Restrictions Shower Restrictions: No Driving Restrictions: No Plan of Treatment: oncology consult Assessment: epigastric pain likely due to cancer from the lung Additional Instructions or Follow Up instructions: please call with any concerns and follow up with Dayanara Reeder MD call to make an appointment [phone] No Smoking: If you smoke, Please STOP! Call for help.
--- NOTE | 2020-10-25 16:31 | DISCHARGE SUMMARY ---
"Discharge Summary Admit Date: 10/22/20 Discharge Date: 10/25/20 Discharging Provider: dayanara reeder md Code Status: Attempt Resuscitation Condition at Discharge: Good Discharge Disposition: 01 Home, Self Care - DIAGNOSES Admission Diagnoses: epigastric pain Discharge Diagnoses with Status of Each Condition: functional gallbladder. appearance of metastatic lung cancer to liver. home in good condition with pain managed with oral medication - HPI History of Present Illness: 3 weeks of epigastric/right upper quadrant pain with loss of appetite - CONSULTS | PROCEDURES Consultations: Interventional radiology Procedures: lung biopsy - HOSPITAL COURSE Hospital Course: No pulmonary symptoms. Pain manageable and taking adequate diet. - ALLERGIES Allergies/Adverse Reactions: Allergies Allergy/AdvReac Type Severity Reaction Status Date / Time No Known Drug Allergies Allergy Verified 10/22/20 13:27 - MEDICATIONS Home Medications: Ambulatory Orders Medication Instructions Recorded Confirmed Fluoxetine HCl [Prozac] 40 mg PO DAILY 10/22/20 10/23/20 Ergocalciferol [Vitamin D2] 50,000 unit PO .QWEEK 10/24/20 10/24/20 HYDROcod/ACETAM 5/325 [[place] 5/325] 1 each PO Q6H PRN #40 tablet 10/25/20 - PHYSICAL EXAM AT DISCHARGE General Appearance: positive: No acute distress, Alert Eyes Bilateral: positive: PERRL, EOMI, No scleral icterus ENT: positive: No signs of dehydration Neck: positive: No JVD Respiratory: positive: No respiratory distress Abdomen: positive: No distention, Other (mild tenderness) Neurologic/Psychiatric: positive: Oriented x3 - LABS Result Diagrams: 10/22/20 13:48 10/22/20 13:48 - QUALITY (Female Hip Fx Only) Was patient sent home on osteoporosis medication?: No - FOLLOW UP Follow Up: Dayanara Reeder MD [phone]"
== END 2020-10-25 17:00 | disposition home or self-care (01) ==
LOC: ED 13:23 → MS2 18:38
PROVIDERS: ADMIT Surgery; ATTEND Surgery
DX: C7A.1 Malignant poorly differentiated neuroendocrine tumors (principal); C7B.8 Other secondary neuroendocrine tumors; R91.8 Other nonspecific abnormal finding of lung field; R63.0 Anorexia; Z68.27 Body mass index [BMI] 27.0-27.9, adult; F32.9 Major depressive disorder, single episode, unspecified; K80.20 Calculus of gallbladder without cholecystitis without obstruction; F17.200 Nicotine dependence, unspecified, uncomplicated; Z79.899 Other long term (current) drug therapy; Z87.01 Personal history of pneumonia (recurrent); Z20.822 Contact with and (suspected) exposure to COVID-19
CPT/HCPCS: 0202U; 32408; 36415; 71045; 71260; 74170; 74177; 76705; 78226; 80053; 81003; 83690; 85025; 85610; 85730; 88305; 88342; 88344; 88360; 96365; 96375; 99284; 99285; 99406; A9270; G0378; Q9967; 78227; 81001; 87086; 96366; 96367

== ENCOUNTER 2020-11-12 08:54 | Day surgery (SDC) | payer MEDICAID ==
[2020-11-12] MEDS ORDERED: LACTATED RINGERS 1,000 ML IV ONE (09:13)
[2020-11-12] MEDS ORDERED: LIDOCAINE 2%-EPI 1:100000 20 ML MDV ONE (10:32)
[2020-11-12] MEDS ORDERED: BUPIVACAINE 0.5% PF 30 ML VIAL ONE (10:33)
[2020-11-12] MEDS ORDERED: MIDAZOLAM 2 MG/2 ML VIAL ONE (10:33)
[2020-11-12] MEDS ORDERED: PROPOFOL 1000 MG/100 ML 1,000 MG/100 ML BOTTLE IV ONE (10:33)
[2020-11-12] MEDS ORDERED: LIDOCAINE 1%-EPI 1:100000 20 ML MDV SUBQ ONE ×2 (11:31)
[2020-11-12] MEDS ORDERED: BUPIVACAINE 0.5% PF 30 ML VIAL SUBQ ONE ×2 (11:32)
[2020-11-12] MEDS ORDERED: ceFAZolin 1 GM VIAL ONE (11:35)
--- NOTE | 2020-11-12 11:54 | OPERATIVE REPORT ---
Operative Report - General Procedure Date: 11/12/20 Planned Procedure: Left subclavian power port Pre-Op Diagnosis: Metastatic lung cancer Procedure Performed: Left subclavian power port Post Op Diagnosis: Same - Procedure Note Primary Surgeon: Simran Anesthesia Provider: MALIK Lima Anesthesia Technique: General mask, Local Pathology: None Estimated Blood Loss (mL): 5 Indications: Facilitation of chemotherapy Findings: Port in good position Complications: None apparent - Other Other Information/Narrative: After obtaining informed consent, the patient is brought to the operating room and placed in supine position on the operating table. Following successful induction of sedation with monitored anesthesia care and appropriate padding of all bony prominences, the left chest and neck were prepped and draped in the standard surgical fashion. A timeout was held per scope protocol. All elements of the surgical safety checklist were followed before, during, and after the procedure. Following infiltration with local anesthetic to create a field block, the left subclavian vein was accessed in the deltopectoral groove. The J-wire was gently placed into the vein. Fluoroscopy was used to confirm the position of the wire and in the subclavian vein. We anesthetized the existing healed scar in the area around it for placement of the port itself. An incision was created here and carried down through the skin and subcutaneous tissue. A pocket was created with blunt dissection. The port tubing was attached to the tunneling device and passed from the access site of the vein into the pocket. It was trimmed to an appropriate length and the port attached. The port was sewn into place in the pocket. The dilator and introducer were then passed over the J-wire that was in the subclavian vein. The J-wire and dilator were removed leaving only the introducer. The tubing was then passed through the introducer and the introducer cracked and removed per store deli manager's directions. The port was then checked for function and flushed and jose easily. Additional local anesthetic was applied to the chest wall. The port pocket was closed with interrupted Vicryl sutures and Monocryl stitches were placed in both skin incision sites. All sponge, needle, and instrument counts were correct at the conclusion of the case. Chest x-ray in the postanesthesia care unit revealed the port in good position in the superior vena cava without evidence of pneumothorax.
[2020-11-12] MEDS ORDERED: LACTATED RINGERS 100 ML IV ONE (11:55)
--- NOTE | 2020-11-12 12:22 | XRAY Report ---
PROCEDURE: Chest for Line Placement INDICATIONS: left port TECHNIQUE: One view of the chest was acquired. COMPARISON: 10/25/2020 FINDINGS: Surgical changes and devices: Interval placement of left chest Port-A-Cath, the tip which projects at the distal left brachiocephalic vein. . Lungs and pleura: No pleural effusions or pneumothorax. Right basilar lung mass again noted. Mediastinum: Mediastinal contours appear normal. Heart size is normal. Bones and chest wall: No suspicious bony lesions. Overlying soft tissues appear unremarkable. IMPRESSION: 1. Tip of left chest Port-A-Cath projects in the distal left brachiocephalic vein. 2. Right basilar lung mass. Reviewed by: Federico Espino MD on 11/12/2020 12:20 PM PDT Approved by: Federico Espino MD on 11/12/2020 12:20 PM PDT Station ID: [id number]
[2020-11-12 12:44] VITALS: BP 122/69
--- NOTE | 2020-11-12 15:33 | ANESTHESIA POST OP EVALUATION ---
Anesthesia Post Eval - Post Anesthesia Eval Vitals: Last Vital Signs Temp 36.5 C 11/12/20 12:25 Pulse 67 11/12/20 12:25 Resp 18 11/12/20 12:25 BP 122/69 11/12/20 12:25 Pulse Ox 98 11/12/20 12:25 CV Function Including HR & BP: Stable Pain Control: Satisfactory Nausea & Vomiting: Negative Mental Status: Baseline Respiratory Status: Airway Patent Hydration Status: Satisfactory Anesthesia Complications: None
--- NOTE | 2020-11-12 15:33 | XRAY Report ---
PROCEDURE: OR Port-A-Cath INDICATIONS: port placement TECHNIQUE: Single intraoperative fluoroscopic image COMPARISON: None. FINDINGS: Single intraoperative fluoroscopic images demonstrating left-sided vascular access Reviewed by: Oren Santizo MD on 11/12/2020 3:32 PM PDT Approved by: Oren Santizo MD on 11/12/2020 3:32 PM PDT Station ID: [id number]
== END 2020-11-12 08:55 | disposition home or self-care (01) ==
LOC: SDS 08:54
PROVIDERS: ATTEND Surgery
DX: C34.90 Malignant neoplasm of unspecified part of unspecified bronchus or lung (principal); C79.9 Secondary malignant neoplasm of unspecified site; J44.9 Chronic obstructive pulmonary disease, unspecified
CPT/HCPCS: 36561; 71045; C1788; J7120

== ENCOUNTER 2020-12-12 14:12 | Outpatient (CLI) | payer MEDICAID ==
--- NOTE | 2020-12-12 17:21 | CONSULTATION NOTE ---
Palliative Care Consultation - Referral Referring Provider: Yelena Kruger PA-C Time of Visit: [id number] Referral setting: [facility] Referral Reason: Small Cell Carcinoma of right lung/Pain of neoplastic origin - Information Sources Records reviewed: Previous records reviewed History/Review of Systems obtained from: Patient, Family (sister, Ladonna) Exam limitations: No limitations - History of Present Illness Brief History of Present Illness: This is a 60-year-old gentleman who presents today at the [facility] clinic for initial palliative care consultation for 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 The patient is seen with his sister, Ladonna who is a strong advocate for him. The patient presented with abdominal pain in October [address] of the abdomen and pelvis demonstrating multiple hepatic lesions concerning for metastatic disease in the right lower lobe of the lung. He had a biopsy of the right lung lesion and was positive for small cell carcinoma. He began carboplatin/etoposide/atezolizumab cycle on 11/19/2020. Patient reports that he has been tolerating the chemotherapy well. He reports that his appetite has improved. He is status post dietitian on site who provided extra suggestions for meals. He typically consumes 1 meal per day. He reports that his weight is holding steady. He does report to no nausea or vomiting. He has not needed to utilize the Zyprexa or O. Danza drawn prior to his chemotherapy cycles. He is using CBD oil that has improved his appetite. He reports that he notices more energy and he is returning back to exercising 3-4 times per week. The patient does report pain that has reduced since introduction of chemotherapy. He reports that the pain is along his left chest wall, right lower quadrant and then radiates to his right mid back. He reports that it comes and goes. He finds it will have been morning, midday night. He utilizes oxycodone 5 mg approximately twice per day and finds is effective. If he repositions while in bed he is able to go to sleep without any utilization of oxycodone. He ran out of his oxycodone approximately 2 days ago. The patient is seen in recliner chair in the infusion center in good spirits and in no evidence of acute distress. Medical/Surgical History - Past Medical History Cardiovascular: reports: None Respiratory: reports: Other Endocrine/Autoimmune: reports: None GI: reports: None : reports: None HEENT: reports: None Psych: reports: Depression Musculoskeletal: reports: None Derm: reports: None MRSA Hx?: No - Substance History Use: Uses substance without health or social issues: Tobacco (Has smoked 1ppd for "years" and began at appx age [age]. He has quit once with nicotine patch a number of years ago.), Other (CBD oil for appetite; former alochol abuse) Social History - Living Situation Living arrangement: At home [place] including his sister, Ladonna who resides in [place] who is a strong advocate and support for the patient. Patient is able to manage his ADLs and IADLs. He has a history of alcohol dependency and is currently sober. He is 1 of 4 siblings. He grew up in [place]. He has 1 son who resides in [facility] with 1 grandson who he saw approximately 3 months ago and plans to see again in June 2021. 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 Family History - Family History Family History Comment/Other: Both parents remain alive. Father--history of CVA, [place], DM and CAD. Mother- History of CVA, DM. Both parents history have former history of tobacco abuse. Medications/Allergies - Medications Home Medications: Ambulatory Orders Medication Instructions Recorded Confirmed Fluoxetine HCl [Prozac] 40 mg PO DAILY 10/22/20 11/28/20 Lidocaine/Prilocain 2.5% Cream 10 applic TOP BID PRN #1 tu 11/12/20 11/28/20 [Emla 2.5% Cream] Lidocaine/Prilocain 2.5% Cream 1 each TP ONCE 30 Days #1 kit 11/14/20 11/28/20 [Emla 2.5% Cream] Lidocaine/Prilocain 2.5% Cream 5 applic TOP UD #1 gm 11/19/20 11/28/20 [Emla 2.5% Cream] OLANZapine [Zyprexa] 5 mg PO UD #12 tablet 11/19/20 11/28/20 Ondansetron HCl [Zofran] 4 mg PO Q6HR PRN #30 tab 11/19/20 11/28/20 Prochlorperazine Maleate 10 mg PO Q6HR PRN #30 tab 11/19/20 11/28/20 [Compazine] Cbd Oil QPM 12/12/20 Melatonin 1 tab PO QPM 12/12/20 Senna [Senokot] 8.6 mg PO DAILY PRN 12/12/20 12/12/20 oxyCODONE [Roxicodone] 5 mg PO Q6H PRN #180 tablet 12/12/20 Multivitamin 1 tab PO DAILY 12/13/20 12/13/20 - Allergies Allergies/Adverse Reactions: Allergies Allergy/AdvReac Type Severity Reaction Status Date / Time No Known Drug Allergies Allergy Verified 11/09/20 14:09 Review of Systems - Constitutional Constitutional: reports: Weight stable. denies: Fever - Eyes Eyes: denies: Irritation - Ears, Nose & Throat Ears, Nose & Throat: reports: Dry mouth - Cardiovascular Cardiovascular: denies: Chest pain, Edema - Respiratory Respiratory: reports: Cough (occasional). denies: SOB with exertion - Gastrointestinal Gastrointestinal: reports: Abdominal pain (see HPI for further details), Other (Fair appetite). denies: Constipation, Nausea, Vomiting - Genitourinary Genitourinary: denies: Dysuria - Musculoskeletal Musculoskeletal: denies: Assistive devices, Transfer issues - Integumentary Integumentary: denies: Rash - Neurological Neurological: denies: Headache, Memory problems - Psychiatric Psychiatric: reports: Depression - Endocrine Endocrine: denies: Diabetes type 2 (however strong family history) - Hematologic/Lymphatic Hematologic/Lymph: denies: Recurrent infections - All Other Systems All Other Systems: reports: Reviewed and negative Physical Exam - Vital Signs Temperature: 36.2 C Pulse Rate: 65 O2 Saturation: 18 Blood Pressure: 133/84 - Physical Exam General Appearance: positive: No acute distress, Alert, Other (well groomed) Eyes Bilateral: positive: Normal inspection ENT: positive: No signs of dehydration Neck: positive: Trachea midline Cardiovascular: positive: Regular rate & rhythm Respiratory: positive: No respiratory distress, Breath sounds nml Abdomen: positive: Non-tender, Soft, Nml bowel sounds. negative: Distended Skin: positive: No symptoms Extremities: positive: Full ROM, Nml appearance, No pedal edema Neurologic/Psychiatric: positive: Oriented x3, Mood/affect nml Palliative Care - POLST Patient has POLST: No Pain: Pain improved (Pain controlled with as needed oxycodone --prefers to only use medication if needed.), Comment (4/10 level) Tiredness/Fatigue: Mild (1-3) Drowsiness/Sedation: Moderate (4-6) Nausea: Mild (1-3) Anorexia: Mild (1-3) Dyspnea: Mild (1-3) Anxiety: Mild (1-3) Feelings of wellbeing/Perceived Quality of Life: Good Sleep: Sleeps well Constipation: No Performance Status: Patient is independent able to manage ADLs and IADLs. Drives. Has strong support from his sister, Ladonna who resides in [place]. - Palliative Care Discussion: Patient has a history of being a longtime smoker and unfortunately has been diagnosed with extensive stage small cell carcinoma of the right lung. Presently with symptom burden related to pain that has significantly improved with initiation of chemotherapy as well as utilization intermittently of oxycodone as needed. The patient has noted improvement of his overall energy and he has returned to exercising routinely. His appetite has also improved with utilization of CBD oil. Introduced to the patient utilization of as needed pain regimen and if increased frequency needed in the future would benefit from introduction of long-acting pain medication to set expectations and normalize utilization of opioid therapy. The patient prefers to live in the here and now. He has a Taoist gilberto and strong family support. He does not wish to discuss advance care planning at the present time and believes" God, life, and love." Introduced role of designating a durable healthcare power of civil litigation attorney and the patient wishes to utilize his sister, Ladonna. Provided paperwork and reviewed completing this information and to have this completed by 2 witnesses or a notary with understanding verbalized and the patient and sister appeared open to this. We will have to proceed gently as the patient's is presently not receptive to discussing prognosis as it is palliative treatment. We will continue to build rapport and provide support. 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 His symptom burden is mostly related to pain of neoplastic origin that has significantly reduced with chemotherapy introduction and utilization of as needed opioid therapy with oxycodone. Patient is reluctant to discuss advance care planning and will need to build rapport and introduced slowly as trust develops. Palliative care will continue to provide support, care coordination, pain and symptom management as well as anticipatory guidance. Recommendations/Counseling Done: 1. Pain of neoplastic origin. Mostly located left chest wall, right lower quadrant radiating to right a mid back. Intermittent. Can be relieved by oxycodone or positional changes. Has responded to chemotherapy with reduction in level of pain. Discussed with patient and sister moving forward after her prescription that Dr. Day has provided for the patient for oxycodone 5 mg every 6 hours as needed for pain that palliative care will resume management. Discussed that moving forward opioid prescriptions will come from palliative care provider and to 1 pharmacy which the patient designates as [facility] with understanding verbalized. Discussed risks of opioid therapy such as drowsiness and constipation. Discussed prevention of constipation with utilization of MiraLAX and senna and reviewed titration at length. Advised goal is to have a daily soft bowel movement at least every other day. 2.Tobacco abuse. Patient with a longstanding history of tobacco use with 1 and interval of smoking cessation. Gently introduced today with the patient regarding desire to cut back and does have a desire but not at the present time. Discussed contemplating reduction of of 1 cigarette/week to gradually wean with goal to reduce and/or discontinue. Patient to contemplate and consider and is appreciative of suggestion and support. 3. History of alcohol abuse. Presently sober. Continue to monitor. 4. Extensive stage small cell carcinoma of the right lung. Presently u ndergoing palliative treatment. Continue to be followed by oncology. 5. Advanced care planning. Patient is presently not open for discussion regarding prognosis of his diagnosis. He wishes to remain in the present and be positive. We will need to continue to develop rapport and establish trust moving forward for introduction of of goals of care. Patient and sister were open to discussion of establishing durable healthcare power of civil litigation attorney. Please see palliative care discussion for further details. Supportive and empathetic listening provided. Total time spent 50 minutes with greater than 50% of this spent in counseling and coordination of care with patient and sister, Ladonna; review of medical records; review of palliative philosophy; supportive listening; review of pain and symptom management and anticipatory guidance. Disclaimer: The chart note was formulated using voice recognition technology and unfortunately sound alike errors may occur.
== END 2020-12-12 14:13 | disposition home or self-care (01) ==
LOC: PC 14:12
PROVIDERS: ATTEND Nurse Practitioner Family
DX: Z51.5 Encounter for palliative care (principal); C34.91 Malignant neoplasm of unspecified part of right bronchus or lung; G89.3 Neoplasm related pain (acute) (chronic); F17.200 Nicotine dependence, unspecified, uncomplicated; F10.21 Alcohol dependence, in remission; Z79.899 Other long term (current) drug therapy
CPT/HCPCS: 99204

== ENCOUNTER 2020-12-28 12:22 | Outpatient (CLI) | payer MEDICAID ==
[2020-12-28] MEDS ORDERED: IOPAMIDOL-300 100 ML VIAL IVP ONE (13:17)
[2020-12-28] MEDS ORDERED: IOPAMIDOL-300 100 ML VIAL ONE (13:26)
--- NOTE | 2020-12-28 14:56 | XRAY Report ---
PROCEDURE: Fluoro Independent Procedure INDICATIONS: NO BLOOD RETURN FROM PORT TECHNIQUE: The existing Port-A-Cath was accessed with a Cox needle prior to the study. Attempt was made to aspirate the port for blood. This was initially unsuccessful. Contrast was injected, and michael ging was obtained. Then, aspiration was reattempted. COMPARISON: None. FINDINGS: Initial attempts to aspirate blood from the port was unsuccessful. Injection of contrast demonstrated the tip of the catheter extends from the left subclavian to the junction between the left brachiocep halic vein and the superior vena cava. There is no perforation catheter. There is no extravasation of contrast. After doing the procedure, the port was noted to successfully aspirate blood. The port was flushed prior to leaving the department. IMPRESSION: The tip of the left chest Port-A-Cath extends to the junction of the left brachiocephalic vein and keith perior vena cava. There is no perforation. After initial unsuccessful attempt to aspirate blood, the port was injected successfully, and then was able to aspirate blood in the procedure. Reviewed by: Federico Espino MD on 12/28/2020 2:55 PM PDT Approved by: Federico Espino MD on 12/28/2020 2:55 PM PDT Station ID: [id number]
== END 2020-12-28 12:23 | disposition home or self-care (01) ==
LOC: DI 12:22
PROVIDERS: ATTEND Internal Medicine
DX: C34.90 Malignant neoplasm of unspecified part of unspecified bronchus or lung (principal); C79.9 Secondary malignant neoplasm of unspecified site
CPT/HCPCS: 76000; Q9967

== ENCOUNTER 2021-01-02 08:56 | Outpatient (CLI) | payer MEDICAID ==
--- NOTE | 2021-01-02 12:42 | CONSULTATION NOTE ---
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 The patient has reported significant reduction in his pain since initiation of chemotherapy. He continues to tolerate treatment well and denies nausea or vomiting during treatment. Presently on carboplatin/etoposide/atezolizumab cycles. He is without any new neuropathic pain, mouth discomfort, or peeling skin to hands and feet. He is presently only utilizing his oxycodone 5 mg typically once daily, most days versus twice daily. He typically utilizes it first thing in the morning as it produces back pain and sciatic pain. He reports overall good energy and mood. He is exercising routinely. Unfortunately, he ran out of his oxycodone and there was some difficulty in obtaining prior authorization for the oxycodone. Moving forward, the patient is aware to contact palliative care for prescription of oxycodone approximately 7 days prior to avoid running out of the medication. Patient reports to a daily bowel movement that is controlled with utilization of MiraLAX half a cap daily. If needed he does have senna available in the home. Patient is seen in recliner chair in infusion center in good spirits and no evidence of acute distress. Less eye aversion noted today and engaged with eye contact. 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 Social History - Living Situation Living arrangement: At home Living Situation: Alone Support System: Patient is and living on [facility] with family close by including his sister, Ladonna who resides in [place] and is a strong advocate for the patient and provide support. He grew up in [place]. As the patient has difficulty with cell front desk receptionist at his place of residence he prefers to have contact go through his sister, Ladonna at [phone]. Medications/Allergies - Medications Home Medications: Ambulatory Orders Medication Instructions Recorded Confirmed Fluoxetine HCl [Prozac] 40 mg PO DAILY 10/22/20 11/28/20 Lidocaine/Prilocain 2.5% Cream 10 applic TOP BID PRN #1 tu 11/12/20 11/28/20 [Emla 2.5% Cream] Lidocaine/Prilocain 2.5% Cream 1 each TP ONCE 30 Days #1 kit 11/14/20 11/28/20 [Emla 2.5% Cream] Lidocaine/Prilocain 2.5% Cream 5 applic TOP UD #1 gm 11/19/20 11/28/20 [Emla 2.5% Cream] OLANZapine [Zyprexa] 5 mg PO UD #12 tablet 11/19/20 11/28/20 Ondansetron HCl [Zofran] 4 mg PO Q6HR PRN #30 tab 11/19/20 11/28/20 Prochlorperazine Maleate 10 mg PO Q6HR PRN #30 tab 11/19/20 11/28/20 [Compazine] Cbd Oil QPM 12/12/20 Melatonin 1 tab PO QPM 12/12/20 Senna [Senokot] 8.6 mg PO DAILY PRN 12/12/20 12/12/20 oxyCODONE [Roxicodone] 5 mg PO Q6H PRN #180 tablet 12/12/20 Multivitamin 1 tab PO DAILY 12/13/20 12/13/20 polyethylene glycoL 3350 [Miralax] 8.5 mg PO QPM 01/02/21 01/02/21 - Allergies Allergies/Adverse Reactions: Allergies Allergy/AdvReac Type Severity Reaction Status Date / Time No Known Drug Allergies Allergy Verified 11/09/20 14:09 Review of Systems - Constitutional Constitutional: reports: Weight stable (states "holding steady"). denies: Fatigue, Fever, Poor appetite - Eyes Eyes: denies: Corrective lenses - Ears, Nose & Throat Ears, Nose & Throat: denies: Mouth lesions - Cardiovascular Cardiovascular: denies: Chest pain, Edema - Respiratory Respiratory: reports: Cough (occasional) - Gastrointestinal Gastrointestinal: reports: Constipation (controlled, see HPI), Good appetite. denies: Abdominal pain, Diarrhea, Nausea, Vomiting - Musculoskeletal Musculoskeletal: denies: Assistive devices, Transfer issues - Integumentary Integumentary: denies: Rash, Dryness - Neurological Neurological: denies: Headache, Dizziness - Psychiatric Psychiatric: reports: Depression (on Prozac) - Endocrine Endocrine: denies: Diabetes type 2 - All Other Systems All Other Systems: reports: Reviewed and negative Physical Exam - Vital Signs Temperature: 36.2 C Pulse Rate: 58 Respiratory Rate: 15 Blood Pressure: 129/76 - Physical Exam General Appearance: positive: No acute distress, Alert Eyes Bilateral: positive: Normal inspection ENT: positive: No signs of dehydration Neck: positive: Trachea midline Cardiovascular: positive: Regular rate & rhythm, No murmur Respiratory: positive: No respiratory distress, Breath sounds nml, Other (+left chestwall port) Abdomen: positive: Non-tender, Soft, Nml bowel sounds Skin: positive: No symptoms Extremities: positive: Nml appearance, No pedal edema Neurologic/Psychiatric: positive: Oriented x3, Mood/affect nml Palliative Care - POLST Patient has POLST: No Pain: Pain improved (Pain improved since chemotherapy began and is typically only using oxycodone once per day presently.) Tiredness/Fatigue: Mild (1-3) Drowsiness/Sedation: Mild (1-3) Nausea: Mild (1-3) Anorexia: Mild (1-3) Dyspnea: Mild (1-3) Depression: Mild (1-3) Anxiety: Mild (1-3) Feelings of wellbeing/Perceived Quality of Life: Good Sleep: Sleeps well Constipation: Managed - Palliative Care Discussion: Patient has had a positive response to initiation of chemotherapy with reduction in his pain and requirement of oxycodone. He is aware that the oxycodone is available as a tool in his toolbox for management of symptoms such as his pain. He has also had no nausea and vomiting related to chemotherapy but is aware that he has Compazine and ondansetron available as needed to access if he has signs and symptoms. He is aware of the tools that he has in his toolbox and reiterated again today for the patient. Overall, he was in good spirits and engaged with good eye contact. Results - Lab Results Lab results reviewed: Yes Lab and Imaging Results: 01/02/2021 Sodium 136, potassium 4.3, BUN 8, creatinine 0.7, estimated GFR 115, AST 32, ALT 20, alk phos 121, albumin 4.2, WBC 7.9, hemoglobin 13.3, hematocrit 41.9%, platelet 332 Impression and Recommendations - Palliative Care Impression: This is a 60-year-old gentleman who has unfortunately been diagnosed with extensive stage small cell carcinoma of the right lung presently undergoing palliative chemotherapy and tolerating this well. His symptom burden has been pain of neoplastic origin that has significantly reduced with initiation of chemotherapy and utilization of opioid therapy with oxycodone. Patient was more in engaged with eye contact today and will continue to need to build rapport and introduce goals of care and advanced care planning slowly as trust develops. Palliative care will continue to provide support, care coordination, pain and symptom management as well as anticipatory guidance. Recommendations/Counseling Done: 1. Pain of neoplastic origin. Mostly to mid-low back. Intermittent. Can be relieved by oxycodone or positional changes. Has responded to chemotherapy with reduction in level of pain. Continue oxycodone 5mg every 6 hours as needed for pain and aware to make Palliative Care aware 7 days prior to presciption being required due to need for Prior Authroization with understanding vebralized. His designated pharmacy is [facility] in [place]. Pain presently well controlled and no need to adjust regimen at this itme. 2.Constipation. Goal is daily soft, bowel movement. Maintaining bowel regimen with use 1/2 cap of miralax daily and to continue. Has senna available if needed. Re-reviewed dose titration of miralax and senna today. 3. History of alcohol abuse. Presently sober. Continue to monitor. 4. Extensive stage small cell carcinoma of the right lung. Presently undergoing palliative treatment. Continue to be followed by oncology. Total time spent 25 minutes with greater than 50% of this spent in counseling and coordination of care with patient ; review of labs; medication management; supportive listening; review of pain and symptom management and anticipatory guidance. Disclaimer: The chart note was formulated using voice recognition technology and unfortunately sound alike errors may occur.
== END 2021-01-02 08:57 | disposition home or self-care (01) ==
LOC: PC 08:56
PROVIDERS: ATTEND Nurse Practitioner Family
DX: Z51.5 Encounter for palliative care (principal); G89.3 Neoplasm related pain (acute) (chronic); K59.00 Constipation, unspecified; F32.9 Major depressive disorder, single episode, unspecified; C34.91 Malignant neoplasm of unspecified part of right bronchus or lung; Z79.899 Other long term (current) drug therapy; Z72.0 Tobacco use; F10.11 Alcohol abuse, in remission
CPT/HCPCS: 99214

== ENCOUNTER 2021-01-08 07:52 | Outpatient (CLI) | payer MEDICAID ==
[2021-01-08] MEDS ORDERED: GADOBUTROL 15 MMOL/15 ML VIAL ONE (07:56)
--- NOTE | 2021-01-08 09:24 | MRI Report ---
PROCEDURE: Brain W/WO INDICATIONS: LUNG CA CONTRAST: IV CONTRAST: Gadavist ml: 8.3 TECHNIQUE: Noncontrast axial T1 spin echo, axial T2 fast spin echo, sagittal and axial FLAIR, coronal T2 fast sp in echo, axial gradient echo, axial diffusion and ADC through the brain. After the administration of contrast, axial and coronal T1 spin echo with fat saturation through the brain. COMPARISON: None. FINDINGS: Image quality: Excellent. CSF spaces: Basal cisterns are patent. No extra-axial fluid collections. Ventricles are normal in size and shape. Brain: No midline shift. No intracranial bleeds or masses. No abnormal intracranial enhancement. There is cerebral volume loss for age. There is periventricular white matter chronic small vessel is chemic change. The brainstem appears normal. Diffusion-weighted images demonstrate no acute ischemi c insults. No chronic ischemic insults. Normal intravascular flow voids are present. Skull and face: There is a 13 mm diameter focus of ill-defined postcontrast enhancement within the le ft anterior aspect of the occipital condyle (series 1002 image 10). Orbits appear normal. Sinuses: Sinuses and mastoids appear clear. IMPRESSION: 1. No evidence of cerebral nor cerebellar metastasis. 2. Findings suggestive of a metastatic focus within the left occipital condyle. Bone scan may be help ful for further assessment. 3. Volume loss and small vessel ischemic disease. Reviewed by: Angelo Hogue MD on 01/08/2021 9:23 AM PDT Approved by: Angelo Hogue MD on 01/08/2021 9:23 AM PDT Station ID: [id number]
[2021-01-08] MEDS ORDERED: GADOBUTROL 15 MMOL/15 ML VIAL IVP ONE (15:40)
== END 2021-01-08 07:53 | disposition home or self-care (01) ==
LOC: DI 07:52
PROVIDERS: ATTEND Internal Medicine
DX: C34.90 Malignant neoplasm of unspecified part of unspecified bronchus or lung (principal); I67.82 Cerebral ischemia
CPT/HCPCS: 70553; A9585

== ENCOUNTER 2021-01-21 06:44 | Outpatient (CLI) | payer MEDICAID ==
[2021-01-21] MEDS ORDERED: IOVERSOL 320 50 ML VIAL ONE (06:54)
[2021-01-21] MEDS ORDERED: IOVERSOL 320 100 ML VIAL IVP ONE ×2 (06:54→08:36)
[2021-01-21] MEDS ORDERED: IOVERSOL 320 50 ML VIAL PO ONE (08:35)
--- NOTE | 2021-01-21 11:54 | CT Report ---
PROCEDURE: CHEST W INDICATIONS: MALIGNANT POORLY DIFFERENTIATED NEUROENDOCRINE PRASHANTH CONTRAST: IV CONTRAST: Optiray 320 ml: 100 PO CONTRAST: Optiray 320 ml50 TECHNIQUE: After the administration of intravenous contrast, 1 mm axial images were acquired from the pulmonary apices through the posterior costophrenic angles. Axial 5 mm soft tissue kernel reconstructions were performed as well as 8 mm axial MIP and coronal and sagittal 5 mm reformations. For radiation dose reduction, the following was used: automated exposure control, adjustment of mA and/or kV according to patient size. COMPARISON: CT chest 10/23/2020, CT abdomen 10/23/2020.. FINDINGS: Image quality: Excellent. Lungs and pleura: There is interval decrease in size of the effusion described peripheral right lowe r lobe mass which now measures up to 2.2 x 1.9 cm on series 4 image 242, decreased from 3.0 x 2.5 cm at a comparable level previously. There is extension to the pleura laterally again noted. A few adjac ent satellite nodules also appear decreased in size including a truck sales representative nodule measuring up to 1.0 cm on series 4 image 270 which presumably measured 1.4 cm. Numerous additional bilateral pulmona ry nodules also demonstrate interval decrease in size. A truck sales representative nodule peripherally in the le ft upper lobe on series 4 image 194 measures up to 0.6 cm compared to 0.8 cm previously. Mild centril obular emphysematous changes are redemonstrated. No pleural effusions or pneumothorax. Mediastinum: Heart size is normal. There are mild coronary arterial vascular calcifications. No vikki cardial effusion. There is a left chest wall subclavian Port-A-Cath with the tip extending into left innominate vein. No mediastinal or hilar adenopathy by size criteria. Thoracic aorta and central pu lmonary arteries are normal in size. Esophagus is normal in caliber. No hiatal hernia. Bones and chest wall: Numerous sclerotic lesions are demonstrated throughout the visualized osseous structures which have markedly increased compared to the prior study. These include diffuse sclerosis involving the entirety of the T6 vertebral body. New sclerotic lesions are demonstrated elsewhere th roughout the visualized spine as well as the bilateral scapulae, clavicles, sternum, and ribs. Findin gs are consistent with metastatic disease. No vertebral body compression fractures. No axillary or s upraclavicular adenopathy by size criteria. The visualized thyroid demonstrates no discrete nodules. Abdomen: Visualized upper abdomen demonstrates decrease in size of the hepatic mass lesions demonstr ated on the prior studies. A truck sales representative residual mass posteriorly within segment 7 of the right h epatic lobe measures up to 1.9 x 1.6 cm on series 3 image 67 decreased from approximately 2.9 x 2.0 c m previously. There is associated mild capsular retraction. High density is demonstrated within a mas s in the anterior left hepatic lobe suggestive of calcifications related to prior treatment. IMPRESSION: 1. Interval decrease in size of the dominant right lower lobe mass as well as decrease in size of num erous additional bilateral pulmonary nodules. There is also interval decrease in size of small hepati c mass lesions. The findings are consistent with partial response to therapy. 2. Diffuse sclerosis of the T6 vertebral body and innumerable new sclerotic lesions demonstrated thro ughout the visualized osseous structures. The findings may reflect progression of osseous metastatic disease or new sclerosis of existing lesions secondary to treatment. Reviewed by: Rich Vieira MD on 01/21/2021 11:52 AM PDT Approved by: Rich Vieira MD on 01/21/2021 11:52 AM PDT Station ID: [id number]
--- NOTE | 2021-01-21 15:43 | CT Report ---
PROCEDURE: Abdomen/Pelvis W INDICATIONS: MALIGNANT POORLY DIFFERENTIATED NEUROENDOCRINE PRASHANTH CONTRAST: IV CONTRAST: Optiray 320 ml: 100 PO CONTRAST: Optiray 320 ml50 TECHNIQUE: After the administration of oral and intravenous contrast, 5 mm thick sections acquired from the diap hragms to the symphysis. 5 mm thick coronal and sagittal reformats were acquired. For radiation dos e reduction, the following was used: automated exposure control, adjustment of mA and/or kV accordin g to patient size. COMPARISON: CT abdomen 10/23/2020, CT abdomen pelvis 10/22/2020. CT chest 01/21/2021, 10/23/2020. FINDINGS: Image quality: Excellent. ABDOMEN: Lung bases: There is a peripheral subpleural mass was spiculated margins in the right lower lobe kaleigh suring up to 2.3 cm which appears decreased in size from the prior studies. Multiple small pulmonary nodules within the visualized lung bases also appear decreased in size compared to the previous exams . There are indistinct groundglass opacities redemonstrated in the lung bases. Heart size is normal. Solid organs: Multiple hepatic mass lesions overall appear decreased in size compared to the prior st udy. [employer]ist mass within segment 7 of the posterior right hepatic lobe measures up to 2.2 x 2. 1 cm on series 5 image 23 compared to 3.4 x 2.8 cm on the prior study of 10/23/2020. No defined periph eral subcapsular lesion within the anterior left hepatic lobe in segment 2 appears minimally decrease d in size with increased capsular retraction. There are internal scattered calcifications likely refl ecting posttreatment changes. Gallbladder is partially distended with nonspecific gallbladder wall thickening and enhancement but n o calcified gallstones.. Biliary system is non dilated. The spleen is normal in size. Pancreas enhan anuradha normally without peripancreatic fat stranding or fluid collections. No adrenal nodules. Kidneys demonstrate no hydronephrosis. There is a right renal cyst. Peritoneum and bowel: Bowel loops demonstrate normal wall thickness and caliber. The appendix is nor mal in appearance. There is colonic diverticulosis without acute diverticulitis. No free fluid or air . Nodes and vessels: No retroperitoneal or mesenteric adenopathy by size criteria. Aorta and inferior vena cava are normal in size. Miscellaneous: No ventral hernias. PELVIS: Genitourinary: Bladder wall thickness is normal. Miscellaneous: No inguinal hernias or adenopathy. Bones: Multiple new sclerotic lesions are demonstrated within the visualized osseous structures. A re presentative lesion within the L5 vertebral body measures up to 2.2 cm. No vertebral body compression fractures. IMPRESSION: 1. Interval decrease in size of previously described hepatic mass lesions consistent with partial res ponse to therapy. 2. Multiple new sclerotic lesions within the visualized osseous structures. The findings may represen t progression of osseous metastatic disease or posttreatment changes with increased sclerosis of unde rlying lesions. Reviewed by: Rich Vieira MD on 01/21/2021 3:42 PM PDT Approved by: Rich Vieira MD on 01/21/2021 3:42 PM PDT Station ID: [id number]
== END 2021-01-21 06:45 | disposition home or self-care (01) ==
LOC: DI 06:44
PROVIDERS: ATTEND Internal Medicine
DX: C7A.1 Malignant poorly differentiated neuroendocrine tumors (principal); R91.8 Other nonspecific abnormal finding of lung field; M89.9 Disorder of bone, unspecified
CPT/HCPCS: 71260; 74177; Q9967

== ENCOUNTER 2021-01-30 10:55 | Outpatient (CLI) | payer MEDICAID ==
--- NOTE | 2021-01-30 13:20 | CONSULTATION NOTE ---
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 The patient continues to have minimal overall pain since initiation of chemotherapy. Presently on carboplatin/etoposide/atezolizumab cycles. Typically continues to have pain in the right upper quadrant that comes and goes. He finds that if he consumes too much that he will have some more discomfort. He is presently utilizing his oxycodone 5 mg typically 5 times per week. This is a significant reduction in what he was utilizing previously. Reports good mood. He continues to exercise routinely. However, he does report some in decrease in energy. He takes supplements [id number] from the [employer] to help with energy as well as caffeine resonated coffee in the mornings to help get more motivation moving. Reports that he is eating and drinking okay but is not consuming enough water typically. Typically getting 8 to 12 hours of sleep. No pattern identified for why he sometimes requires 12 hours of sleep per his report. He does report intermittent constipation and is presently taking 1 cap of MiraLAX at night and to tablets of senna. As he is having waxing and waning with his defecation and feels better with routine defecation may benefit from dose adjustment of his bowel regimen and is amenable to this. Patient is seen in recliner chair in infusion center in good spirits and no evidence of acute distress. 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 Social History - Living Situation Living arrangement: At home Living Situation: Alone Support System: Patient is and living on [facility] with family close by including his sister, Ladonna who resides in [place] and is a strong advocate for the patient and provide support. He grew up in [place]. As the patient has difficulty with cell concierge receptionist at his place of residence he prefers to have contact go through his sister, Ladonna at [phone]. He continues to continue to remain active with routine exercise. Medications/Allergies - Medications Home Medications: Ambulatory Orders Medication Instructions Recorded Confirmed Fluoxetine HCl [Prozac] 40 mg PO DAILY 10/22/20 11/28/20 Lidocaine/Prilocain 2.5% Cream 10 applic TOP BID PRN #1 tu 11/12/20 11/28/20 [Emla 2.5% Cream] Lidocaine/Prilocain 2.5% Cream 1 each TP ONCE 30 Days #1 kit 11/14/20 11/28/20 [Emla 2.5% Cream] Lidocaine/Prilocain 2.5% Cream 5 applic TOP UD #1 gm 11/19/20 11/28/20 [Emla 2.5% Cream] OLANZapine [Zyprexa] 5 mg PO UD #12 tablet 11/19/20 11/28/20 Ondansetron HCl [Zofran] 4 mg PO Q6HR PRN #30 tab 11/19/20 11/28/20 Prochlorperazine Maleate 10 mg PO Q6HR PRN #30 tab 11/19/20 11/28/20 [Compazine] Cbd Oil QPM 12/12/20 Melatonin 1 tab PO QPM 12/12/20 Senna [Senokot] 2 tab PO QPM 12/12/20 12/12/20 oxyCODONE [Roxicodone] 5 mg PO Q6H PRN #180 tablet 12/12/20 Multivitamin 1 tab PO DAILY 12/13/20 12/13/20 polyethylene glycoL 3350 [Miralax] 17 g PO QPM 01/02/21 01/02/21 - Allergies Allergies/Adverse Reactions: Allergies Allergy/AdvReac Type Severity Reaction Status Date / Time No Known Drug Allergies Allergy Verified 11/09/20 14:09 Review of Systems - Constitutional Constitutional: reports: Fatigue, Weight stable (states "holding steady"). denies: Fever, Poor appetite - Ears, Nose & Throat Ears, Nose & Throat: denies: Dry mouth - Cardiovascular Cardiovascular: denies: Edema - Respiratory Respiratory: reports: Cough (occasional) - Gastrointestinal Gastrointestinal: reports: Constipation (see HPI), Early satiety, Good appetite. denies: Abdominal distention, Diarrhea, Nausea, Vomiting, Bloating - Genitourinary Genitourinary: reports: Dysuria (noted intermittently), Nocturia (2x per night) - Musculoskeletal Musculoskeletal: denies: Assistive devices - Integumentary Integumentary: denies: Rash - Neurological Neurological: denies: Numbness - Psychiatric Psychiatric: reports: Depression (on Prozac) - All Other Systems All Other Systems: reports: Reviewed and negative Physical Exam - Vital Signs Temperature: 36.5 C Pulse Rate: 59 O2 Saturation: 100 (on RA) Blood Pressure: 119/70 (right arm) - Physical Exam General Appearance: positive: No acute distress, Alert Eyes Bilateral: positive: Normal inspection ENT: positive: No signs of dehydration Neck: positive: Trachea midline Cardiovascular: positive: Regular rate & rhythm Respiratory: positive: No respiratory distress, Breath sounds nml Abdomen: positive: Non-tender, Soft, Nml bowel sounds Skin: positive: No symptoms Extremities: positive: No pedal edema Neurologic/Psychiatric: positive: Oriented x3, Mood/affect nml Palliative Care - POLST Patient has POLST: No Pain: Pain improved (using oxycodone 5mg daily up to 5 times a week intermittently with good response.), Severity (3/10 to RUQ of abdomen when occuring) Tiredness/Fatigue: Mild (1-3) Drowsiness/Sedation: Severe (7-10) Nausea: Moderate (4-6) Anorexia: Moderate (4-6) Dyspnea: Mild (1-3) Depression: Mild (1-3) Anxiety: Mild (1-3) Feelings of wellbeing/Perceived Quality of Life: Good Sleep: Sleeps well Performance Status: Patient presently has pain adequately controlled and intermittent utilization of oxycodone and positive response to chemotherapy with pain reduction. Patient is reporting being frustrated with some fatigue and advised to incorporate exercise into his routine, whole food and healthy eating, reduction of utilization of [id number] supplements and practicing healthy habits and continuation of adequate sleep. He is open to utilizing to see him and plans to obtain his plantar from his sister for reinitiation. Results - Lab Results Lab results reviewed: Yes Lab and Imaging Results: 01/23/2021 Sodium 138, potassium 4.1, BUN 8, creatinine 0.8, AST 29, ALT 19, alk phos 113, TSH 1.94, free T4 0.86 WBC 7.5, hemoglobin 12.7, hematocrit 40%, platelet 294 Impression and Recommendations - Palliative Care Impression: This is a 60-year-old gentleman who was unfortunately diagnosed with extensive Stage small cell carcinoma of the right lung presently undergoing palliative chemotherapy and tolerating well. His symptom apparently has been fatigue and constipation and pain of neoplastic origin. He is pain is presently well contr olled since initiation of chemotherapy and utilizes opioid therapy with oxycodone as needed.We will continue to build rapport and introduce goals of care and introduce advance care planning slowly as trust develops. Palliative care will continue to provide support, care coordination, pain and symptom management as well as anticipatory guidance. Recommendations/Counseling Done: 1. Constipation. Goal is daily soft, bowel movement. Introduced titration of MiraLAX and senna. Presently, patient to increase MiraLAX to half a cap in the morning and 1 cap in the evening. Again reviewed titration. Continue senna 2 tabs in the evening and reviewed dose titration based on response with understanding verbalized. 2. Intermittent dysuria. Likely contributing factor is patient's concentrated urine and not having adequate hydration throughout the day. Encouraged to increase his water consumption and to not have caffeinated beverages after 3 PM. Also discussed nocturia utilizing voiding practice right before bed and not having any beverages 1 hour prior to bed to reduce frequency of voiding. 3. Fatigue. Receiving adequate sleep. Reviewed setting expectations for combating fatigue such as adequate sleep, healthy diet with cold foods, encouraged to go back to juicing and smoothies with whole foods, and routine exercise. 4. Extensive stage small cell carcinoma of the right lung. Presently undergoing palliative treatment. Continue to be followed by oncology. Total time spent 30 minutes with greater than 50% of the spent in counseling and coordination of care with the patient and nursing staff; review of labs; bowel regimen titration; supportive listening; review of symptom management and anticipatory guidance. Disclaimer: The chart note was formulated using voice recognition technology and unfortunately sound alike errors may occur.
== END 2021-01-30 10:56 | disposition home or self-care (01) ==
LOC: PC 10:55
PROVIDERS: ATTEND Nurse Practitioner Family
DX: Z51.5 Encounter for palliative care (principal); K59.00 Constipation, unspecified; R30.0 Dysuria; R53.83 Other fatigue; C34.91 Malignant neoplasm of unspecified part of right bronchus or lung; G89.3 Neoplasm related pain (acute) (chronic); Z79.899 Other long term (current) drug therapy; Z87.891 Personal history of nicotine dependence
CPT/HCPCS: 99214

== ENCOUNTER 2021-04-10 11:05 | Outpatient (CLI) | payer MEDICAID ==
--- NOTE | 2021-04-10 17:31 | CONSULTATION NOTE ---
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 Provider wore N95 mask. The patient had a reduction of his overall pain to his right upper quadrant after initiation of chemotherapy. Presently on carboplatin/etoposide/atezolizumab cycles. He has not had chemotherapy for the last month per his report. He has had some increase of abdominal discomfort more specifically related to bloating. Yesterday, he picked up simethicone (gas relief (and has only utilize this once. He feels better after flatus or defecation. He has not been utilizing his oxycodone 5 mg tablets which she does find effective for relieving pain for fear of constipation. Continues to require reassurance that bowels will be managed with medications to an sure prevention of constipation. Due to the discomfort he has had a reduction in his exercise regimen. Pain does not awaken him from sleep. He reports that he is moving his bowels routinely however, is reporting that he does not feel like he is completely emptying his bowels. Presently he is using 2 tablets of senna S daily. Also utilizing MiraLAX 1 cap daily. He does report that his bowels have been more watery and again, does not feel relief or complete defecation. Patient is seen in recliner chair in [facility], well groomed and no evidence of acute distress. 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 Social History - Living Situation Living arrangement: At home Living Situation: Alone Support System: Patient is and living on [facility] with family close by including his sister, aLdonna who resides in [place] and is a strong advocate for the patient and provide support. He grew up in [place]. As the patient has difficulty with cell legal secretary receptionist at his place of residence he prefers to have contact go through his sister, Ladonna at [phone]. Medications/Allergies - Medications Home Medications: Ambulatory Orders Medication Instructions Recorded Confirmed Fluoxetine HCl [Prozac] 40 mg PO DAILY 10/22/20 11/28/20 Lidocaine/Prilocain 2.5% Cream 10 applic TOP BID PRN #1 tu 11/12/20 11/28/20 [Emla 2.5% Cream] Lidocaine/Prilocain 2.5% Cream 1 each TP ONCE 30 Days #1 kit 11/14/20 11/28/20 [Emla 2.5% Cream] Lidocaine/Prilocain 2.5% Cream 5 applic TOP UD #1 gm 11/19/20 11/28/20 [Emla 2.5% Cream] OLANZapine [Zyprexa] 5 mg PO UD #12 tablet 11/19/20 11/28/20 Ondansetron HCl [Zofran] 4 mg PO Q6HR PRN #30 tab 11/19/20 11/28/20 Prochlorperazine Maleate 10 mg PO Q6HR PRN #30 tab 11/19/20 11/28/20 [Compazine] Cbd Oil QPM 12/12/20 Melatonin 1 tab PO QPM 12/12/20 Senna [Senokot] tab PO MDD 1 tab in AM and 2 tab 12/12/20 12/12/20 in PM oxyCODONE [Roxicodone] 5 mg PO Q6H PRN #180 tablet 12/12/20 Multivitamin 1 tab PO DAILY 12/13/20 12/13/20 polyethylene glycoL 3350 [Miralax] 17 g PO QPM 01/02/21 01/02/21 Simethicone [Gas Relief] 1 cap PO QPM MDD x3 nights then PRN 04/11/21 04/11/21 - Allergies Allergies/Adverse Reactions: Allergies Allergy/AdvReac Type Severity Reaction Status Date / Time No Known Drug Allergies Allergy Verified 11/09/20 14:09 Review of Systems - Constitutional Constitutional: reports: Weight stable. denies: Fatigue, Fever, Poor appetite (long standing history of consuming 1 meal per day) - Ears, Nose & Throat Ears, Nose & Throat: denies: Hearing loss - Cardiovascular Cardiovascular: denies: Chest pain, Edema - Respiratory Respiratory: reports: Cough (occasional). denies: SOB at rest - Gastrointestinal Gastrointestinal: reports: Abdominal pain, Constipation (seeHPI), Good appetite. denies: Nausea, Vomiting - Genitourinary Genitourinary: denies: Dysuria - Musculoskeletal Musculoskeletal: denies: Assistive devices, Transfer issues - Neurological Neurological: denies: Headache - Psychiatric Psychiatric: reports: Depression (on Prozac), Anxiety - Hematologic/Lymphatic Hematologic/Lymph: denies: Recurrent infections - All Other Systems All Other Systems: reports: Reviewed and negative Physical Exam - Vital Signs Temperature: 36.3 C Pulse Rate: 61 Respiratory Rate: 16 Blood Pressure: 147/91 - Physical Exam General Appearance: positive: No acute distress, Alert Eyes Bilateral: positive: Normal inspection ENT: positive: No signs of dehydration Cardiovascular: positive: Regular rate & rhythm Respiratory: positive: No respiratory distress, Breath sounds nml, Other Abdomen: positive: Non-tender, Soft, Nml bowel sounds. negative: Organomegaly, Distended Extremities: positive: No pedal edema Neurologic/Psychiatric: positive: Oriented x3, Mood/affect nml Palliative Care - POLST Patient has POLST: No Pain: Comment (Pain to RUQ that responds to oxycodone mild increase in setting of constipation symptoms and bloating. He is reluctant to take his oxycodone for fear of constipation.) Performance Status: Independent of ADLs and IADLs. - Palliative Care Discussion: Patient has reported not feeling as if he is fully defecating and some increased bloating with positive response with flatus. Discussed signs and symptoms of constipation despite defecating. Discussed dose titration of senna and MiraLAX to ensure the goal of a daily, soft bowel movement. Advised not to utilize senna S moving forward there is more room to titrate with senna independently with understanding verbalized. As he is having some increased bloating made recommendation to utilize simethicone 1 capsule at bedtime for the next 3 nights and monitor response. The patient has a history of right upper quadrant pain that responded significantly with initiation of chemotherapy and has a positive response to utilization of oxycodone. However, the patient is reluctant to utilize oxycodone despite the positive response for fear of constipation. Reviewed bowel titration with utilization of senna and MiraLAX to control symptoms and reassurance provided regarding utilization of these tools and utilizing Oxycodone to control his symptoms. We will need to continue to cue and provide reassurance to optimize the patient's comfort and reduce fears that spark anxiety. Results - Lab Results Lab results reviewed: Yes Lab and Imaging Results: 04/10/2021 Sodium 138, potassium 4.4, BUN 9, creatinine 0.7, glucose 116, alk phos 239, ALT 79, AST 152, WBC 7.6, H&H 13.4 and 41%, platelet 311 Impression and Recommendations - Palliative Care Impression: This is a 60-year-old gentleman who unfortunately was diagnosed with extensive stage small cell carcinoma of the right lung presenting with he undergoing palliative chemotherapy and tolerating this treatment well. He is experiencing symptom burden of constipation and pain of neoplastic origin. Would benefit from dose titration of his bowel regimen to optimize defecation. Discussed titration of senna and MiraLAX to achieve the goal of a daily, soft bowel movements. With increased symptoms of bloating to initiate simethicone in the evening for the next 3 nights and monitor response. We will need to continue to build rapport and introduce advance care planning slowly as trust develops. Palliative care will continue provide support, care coordination, pain and symptom management as well as anticipatory guidance. Recommendations/Counseling Done: 1. Constipation. Patient continues to have a fear regarding constipation with utilization of oxycodone despite reassurance. Goal is a daily, soft bowel movement. Reintroduce titration of MiraLAX and senna. Patient to continue MiraLAX 1 cap in the evening. Increase senna to 1 tablet in the morning and 2 tablets in the evening. 2. Bloating. Positive response with flatus. Initiate simethicone 1 capsule in the evening times the next 3 nights and monitor response. Discussed ambulation can assist with flatus as well as constipation. 3. Pain of neoplastic origin. Most specifically related to right quadrant of abdomen. No pain that is awaking from sleep. Patient is fearful regarding utilization of oxycodone 5 mg as ordered every 6 hours as needed for pain given fear of constipation. Discussed as the patient has a positive response with utilization of oxycodone to utilize and record administration for monitoring and need for dose adjustments with understanding verbalized. Reassurance provided regarding monitoring and regiment for defecation. We will continue to require reeducation regarding utilization of opioid therapy for symptom management to diminish fears. 4. Extensive stage small cell carcinoma of the right lung. Presently undergoing palliative treatment. Continues to be followed by oncology. To follow-up with oncologist today for scheduled appointment. Total time spent 30 minutes with greater than 50% of the spent counseling coronation of care with the patient, Sister Ladonna, and RN Clotilde; examination of patient; review of pain and symptom management as well as anticipatory guidance. Disclaimer: The chart note was formulated using voice recognition technology and unfortunately sound alike errors may occur.
== END 2021-04-10 11:06 | disposition home or self-care (01) ==
LOC: PC 11:05
PROVIDERS: ATTEND Nurse Practitioner Family
DX: Z51.5 Encounter for palliative care (principal); G89.3 Neoplasm related pain (acute) (chronic); R14.0 Abdominal distension (gaseous); K59.00 Constipation, unspecified; C34.91 Malignant neoplasm of unspecified part of right bronchus or lung; Z79.899 Other long term (current) drug therapy; Z87.891 Personal history of nicotine dependence; F10.11 Alcohol abuse, in remission
CPT/HCPCS: 99214

== ENCOUNTER 2021-04-17 11:10 | Outpatient (CLI) | payer MEDICAID ==
--- NOTE | 2021-04-17 11:59 | CONSULTATION NOTE ---
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 Provider were N95 mask. The patient continues to report right upper quadrant discomfort. His oxycodone has been increased from 5 mg every 6 hours as needed to oxycodone 5 to 10 mg every 4 hours as needed. And the patient took oxycodone 5 mg approximately 6 times yesterday during the course of 24 hours with a reduction in pain but not full relief. He had a CT scan on 04/11/2021 that demonstrated progressive hepatic metastatic disease and the large bowel containing stool consistent with constipation with no free air or free fluid. Since then, the patient has been having flatus on a daily basis however, he feels that he needs to release gas more. He feels a crampy gas pain. He has had bowel movements on Thursday, Thursday, Thursday, and this morning. He finds that the stool overall is liquid. For the last 3 to 4 days he has not been consuming meals but has been staying hydrated. Denies nausea or vomiting. He reports that the pain is interfering with his desire to eat. Reports that his stool is brown in color. He finds that gas relief simethicone has not been effective. He is presently taking MiraLAX 1 cap twice a day and senna 2 tabs in the morning and 2 tabs in the evening despite his request to increase to senna 2 tabs 3 times a day previously for bowel titration. The patient is seen in the [place] in [place] [facility] well-groomed, joking with staff and no evidence of acute distress. 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 Social History - Living Situation Living arrangement: At home Living Situation: Alone Support System: Patient is and living on [facility] with family close by including his sister, Ladonna who resides in [place] and is a strong advocate for the patient and provide support. He grew up in [place]. As the patient has difficulty with cell medical secretary receptionist at his place of residence he prefers to have contact go through his sister, Ladonna at [phone]. Medications/Allergies - Medications Home Medications: Ambulatory Orders Medication Instructions Recorded Confirmed Fluoxetine HCl [Prozac] 40 mg PO DAILY 10/22/20 11/28/20 Lidocaine/Prilocain 2.5% Cream 10 applic TOP BID PRN #1 tu 11/12/20 11/28/20 [Emla 2.5% Cream] Lidocaine/Prilocain 2.5% Cream 1 each TP ONCE 30 Days #1 kit 11/14/20 11/28/20 [Emla 2.5% Cream] Lidocaine/Prilocain 2.5% Cream 5 applic TOP UD #1 gm 11/19/20 11/28/20 [Emla 2.5% Cream] OLANZapine [Zyprexa] 5 mg PO UD #12 tablet 11/19/20 11/28/20 Ondansetron HCl [Zofran] 4 mg PO Q6HR PRN #30 tab 11/19/20 11/28/20 Prochlorperazine Maleate 10 mg PO Q6HR PRN #30 tab 11/19/20 11/28/20 [Compazine] Cbd Oil QPM 12/12/20 Melatonin 1 tab PO QPM 12/12/20 Senna [Senokot] 2 tab PO TID 12/12/20 12/12/20 Multivitamin 1 tab PO DAILY 12/13/20 12/13/20 polyethylene glycoL 3350 [Miralax] 17 g PO BID 01/02/21 01/02/21 Simethicone [Gas Relief] 1 cap PO QPM MDD x3 nights then PRN 04/11/21 04/11/21 Magnesium Hydroxide [Milk of 30 ml PO DAILY PRN MDD if no BM in 04/15/21 04/15/21 Magnesia] 48h oxyCODONE [Roxicodone] 5 - 10 mg PO Q4HR PRN 04/15/21 Morphine Sulfate [Ms Contin] 15 mg PO QPM 04/17/21 04/17/21 Naloxone HCl Nasal [Narcan Nasal] PRN 04/17/21 - Allergies Allergies/Adverse Reactions: Allergies Allergy/AdvReac Type Severity Reaction Status Date / Time No Known Drug Allergies Allergy Verified 11/09/20 14:09 Review of Systems - Constitutional Constitutional: reports: Fatigue, Poor appetite ( of note he has a long standing history of consuming 1 meal per day), Weight stable. denies: Fever - Ears, Nose & Throat Ears, Nose & Throat: denies: Dentures - Cardiovascular Cardiovascular: denies: Edema - Respiratory Respiratory: reports: Cough (occasional) - Gastrointestinal Gastrointestinal: reports: Abdominal pain, Constipation (seeHPI), Poor appetite, Other (+gas pains). denies: Abdominal distention, Black stools, Nausea, Vomiting - Genitourinary Genitourinary: denies: Dysuria - Musculoskeletal Musculoskeletal: denies: Assistive devices - Integumentary Integumentary: denies: Rash - Psychiatric Psychiatric: reports: Depression (on Prozac), Anxiety - All Other Systems All Other Systems: reports: Reviewed and negative Physical Exam - Vital Signs Pulse Rate: 92 Blood Pressure: 119/77 - Physical Exam General Appearance: positive: No acute distress, Alert Eyes Bilateral: positive: Normal inspection ENT: positive: No signs of dehydration Neck: positive: Trachea midline Cardiovascular: positive: Regular rate & rhythm Respiratory: positive: No respiratory distress, Breath sounds nml, Other Abdomen: positive: Soft, Nml bowel sounds (slightly hyperactive), Tenderness (RUQ to deep palpation). negative: Organomegaly, Distended, Taut Skin: positive: No symptoms Extremities: positive: No pedal edema Neurologic/Psychiatric: positive: Oriented x3, Mood/affect nml Palliative Care - POLST Patient has POLST: No Pain: Pain unchanged (RUQ pain with some relief with oyxoconde increase but continue to interfere with quality of life), Location (RUQ), Severity (6-7/10) Tiredness/Fatigue: Moderate (4-6) Drowsiness/Sedation: Moderate (4-6) Nausea: None Anorexia: Moderate (4-6) Dyspnea: Moderate (4-6) Depression: Mild (1-3) Anxiety: Moderate (4-6) Feelings of wellbeing/Perceived Quality of Life: Fair Constipation: Yes, Managed - Palliative Care Discussion: Patient is having increased right upper quadrant pain and most recent CT scan of the abdomen and pelvis demonstrated progressive hepatic metastatic disease. He is reluctant regarding taking opioid therapy however, weighing benefits versus burdens he wishes to have relief in order to move forward with function. In the juice the role of long acting opioid therapy to provide and turning down the volume when his pain versus utilization of oxycodone. Patient is amenable to this and will start at a low dose with MS Contin 15 mg at bedtime for pain. Given the patient's reluctance and will offer benefit for sleep overnight as he is often waking up due to discomfort. Also encouraged to utilize oxycodone for relief and continue to record and monitor. Did introduce that in the future based on his response may need to titrate up to twice daily to 3 times daily dosing. The patient has reservations regarding this and is optimistic that he will be able to reduce his usage of oxycodone as well as eventually coming off of MS Contin. Did discuss not to stop MS Contin abruptly to prevent withdrawal symptoms with understanding verbalized. He does present with underlying anxiety and would benefit in the future to tease out some of his underlying anxiety and more targeted therapy. Results - Lab Results Lab results reviewed: Yes Lab and Imaging Results: CT scan 04/11/2021 Impression and Recommendations - Palliative Care Impression: This is a 60-year-old man who unfortunately was diagnosed with extensive stage small cell carcinoma of the right lung who is presently undergoing palliative chemotherapy and tolerating this treatment well. He is experiencing symptom burden of pain of neoplastic origin to RUQ, constipation and gas pain. Would benefit from further titration of bowel regimen and introduction of long acting opioid therapy with MS COntin 15mg nightly. Will need to continue to build rapport and introduce advanced care planning slowly as trust develops. Palliative care will continue to provide support ,care coordination, pain and symptom management as well as anticipatory guidance. Recommendations/Counseling Done: 1. Pain of neoplastic origin, specifically to RUQ in setting of liver metastasis. Start MS Contin 15mg nightly given patient's concerns regarding correction opioid use and set expectations regarding increasing dosing frequency based on his response to optomize comfort and function. COntinue oxycodone 5-10mg every 4 hours as needed for breakthrough pain. Patient aware not to stop MS contin abruptly and will need taper to discontinue. Narcan reviewed and prescribed to have available in the home. Continue to monitor and adjust pain r egimen based on response and patient's fears. 2. Gas pains. Has not found gas relief effective. Constipation may be contributing and see below for further details with Dx. Constipation. Discussed trial of beano over the counter. 3. Constipation. Patient is moving his bowels in the setting of decreased oral intake. Reviewed goal remains a daily, soft bowel movement. Advised to take 1/2 bottle of Magnesium citrate this afternoon. Moving forward continue Miralax 17g BID and senna 2 tablets three times a day. If there is no bowel movement in 48 hours to take 30ML of Milk of Magnesia. CT scan preformed 04/11/2021 with evidence of constipation and no evidence of obstruction. 4. Anxiety and depression. Patient has anxiety that is predominant and will need to continue to build rapport and set expectations to reduce fears that will lead to anxiety. Presently on Prozac 40mg daily. May consider utilization of Buspar as adjunct in the future for anxiety. 5. Extensive stage small cell carcinoma of the right lung. Presently undergoing palliative treatment. Followed by oncology. Total time spent 30 minutes with greater than 50% of this spent in counseling and coordination of care with patient and MAC RN, examination of patient, review of pain regimen and long acting therapy, safety of opioids, medication review, and anticipatory guidance. Disclaimer: The chart note was formulated using voice recognition technology and unfortunately sound alike errors may occur.
== END 2021-04-17 11:11 | disposition home or self-care (01) ==
LOC: PC 11:10
PROVIDERS: ATTEND Nurse Practitioner Family
DX: Z51.5 Encounter for palliative care (principal); C34.91 Malignant neoplasm of unspecified part of right bronchus or lung; G89.3 Neoplasm related pain (acute) (chronic); C78.7 Secondary malignant neoplasm of liver and intrahepatic bile duct; K59.00 Constipation, unspecified; F41.9 Anxiety disorder, unspecified; F32.A Depression, unspecified; R14.1 Gas pain; J44.9 Chronic obstructive pulmonary disease, unspecified; Z87.891 Personal history of nicotine dependence
CPT/HCPCS: 99214

== ENCOUNTER 2021-04-30 05:58 | Outpatient (CLI) | payer MEDICAID ==
[2021-04-30] MEDS ORDERED: iohexoL-300 100 ML VIAL ONE (06:20)
[2021-04-30] MEDS ORDERED: IOPAMIDOL-300 50 ML VIAL ONE (06:20)
[2021-04-30] MEDS ORDERED: IOPAMIDOL-300 50 ML VIAL PO ONE (07:46)
[2021-04-30] MEDS ORDERED: iohexoL-300 100 ML VIAL IVP ONE (07:46)
--- NOTE | 2021-04-30 09:44 | CT Report ---
PROCEDURE: CHEST W INDICATIONS: LUNG CA, SECONDARY LIVER CA CONTRAST: IV CONTRAST: Isovue 300 ml: 100 PO CONTRAST: Isovue 300 ml50 TECHNIQUE: After the administration of intravenous contrast, 1 mm axial images were acquired from the pulmonary apices through the posterior costophrenic angles. Axial 5 mm soft tissue kernel reconstructions were performed as well as 8 mm axial MIP and coronal and sagittal 5 mm reformations. For radiation dose reduction, the following was used: automated exposure control, adjustment of mA and/or kV according to patient size. COMPARISON: CT chest with contrast, 03/20/2021, 01/21/2021 and 10/23/2020. FINDINGS: Image quality: Excellent. Lungs and pleura: There are numerous pulmonary masses/nodules bilaterally, demonstrating mixed inter deb change. Reference lesions are listed in the following: Lesion 1: 2.4 x 1.9 cm; RLL; series 3 image 2061; previously 2.5 x 2.0 cm. Lesion 2: 0.9 cm; RLL; series 3 image 267; previously 0.7 cm. Lesion 3: 0.6 cm; RLL; series 3 image 257; previously 0.6 cm. Lesion 4: 0.7 cm; GAY; series 3 image 202; previously 0.7 cm. No acute air space opacities. No pleural effusions or pneumothorax. Central and peripheral airways are patent and normal in caliber. Mediastinum: Heart size is normal. No pericardial effusion. Mild coronary calcification. No medias tinal or hilar adenopathy by size criteria. Thoracic aorta and central pulmonary arteries are normal in size. Esophagus is normal in caliber. No hiatal hernia. Bones and chest wall: There are multiple sclerotic bone lesions involving the thoracic spine and uppe r lumbar spine, sternum, and ribs bilaterally, compatible with osseous metastases. Overall, osseous l esions are stable. No axillary or supraclavicular adenopathy by size criteria. The thyroid is normal in size and there are no incidental findings. Note is made of a Port-A-Cath in the left anterior chest. Abdomen: There are multiple hepatic masses compatible with liver metastases. IMPRESSION: 1. Numerous pulmonary masses/nodules bilaterally. The dominant mass in the right lower lobe is minima lly decreased in size. Other lesions also demonstrate minimal interval change. 2. No mediastinal or hilar lymphadenopathy. 3. Stable sclerotic bone lesions compatible with osseous metastases. 4. Metastatic disease in liver. Please see separate CT abdomen report for detail. Reviewed by: Lan Norris MD on 04/30/2021 9:43 AM PST Approved by: Lan oNrris MD on 04/30/2021 9:43 AM PST Station ID: [id number]
--- NOTE | 2021-04-30 10:12 | CT Report ---
PROCEDURE: Abdomen/Pelvis W INDICATIONS: LUNG CA, SECONDARY LIVER CA CONTRAST: IV CONTRAST: Isovue 300 ml: 100 PO CONTRAST: Isovue 300 ml50 TECHNIQUE: After the administration of oral and intravenous contrast, 5 mm thick sections acquired from the diap hragms to the symphysis. 5 mm thick coronal and sagittal reformats were acquired. For radiation dos e reduction, the following was used: automated exposure control, adjustment of mA and/or kV accordin g to patient size. COMPARISON: CT abdomen and pelvis with contrast, 04/11/2021, 03/20/2021 and 01/21/2021. FINDINGS: Image quality: Excellent. ABDOMEN: Lung bases: Multiple lung lesions are seen bilaterally (please see separation CT chest for detail). Heart size is normal. Solid organs: Numerous liver masses are present, compatible with hepatic metastases. Two dominant les ions are listed in the following: Lesion 1: 4.0 x 3.9 cm; series 3 image 24; previously 5.3 x 5.0 cm. Lesion 2: 3.4 x 3.3 cm; series 3 image 24; previously 4.3 x 4.2 cm. Smaller lesions are present, minimally changed. Spleen is normal in size and enhancement. Gallbladder is normal. Biliary system is non dilated. Pancreas enhances normally. A 1.5 cm left adrenal nodule is again noted, unchanged size. Right adrenal is normal. Kidneys demonstrate normal size and enhancement, without hydronephrosis. There is a 2.4 cm groundgla ss nodule in the posterior cortex of the right kidney, most likely a cyst. Peritoneum and bowel: Bowel loops demonstrate normal wall thickness and caliber. Small amount of fr ee fluid is present. No free air. Nodes and vessels: No retroperitoneal or mesenteric adenopathy by size criteria. Borderline sized ao rtocaval lymph nodes are unchanged. Aorta and inferior vena cava are normal in size. Moderate ather osclerotic calcifications. Miscellaneous: No ventral hernias. PELVIS: Genitourinary: Bladder wall thickness is normal. Miscellaneous: No inguinal hernias or adenopathy. Bones: Stable sclerotic bony lesions in the lower thoracic spine, lumbar spine, sacrum, and iliac bon es bilaterally, consistent with osseous metastasis. No vertebral body compression fractures. IMPRESSION: 1. Slight interval decrease in size of 2 dominant liver lesions. Numerous smaller hepatic lesions are present, minimally changed. 2. Stable 1.5 cm left adrenal nodule. 3. Stable osseous metastatic disease. Reviewed by: Lan Norris MD on 04/30/2021 10:11 AM PST Approved by: Lan Norris MD on 04/30/2021 10:11 AM PST Station ID: [id number]
== END 2021-04-30 05:59 | disposition home or self-care (01) ==
LOC: DI 05:58
PROVIDERS: ATTEND Internal Medicine
DX: C34.31 Malignant neoplasm of lower lobe, right bronchus or lung (principal); C78.7 Secondary malignant neoplasm of liver and intrahepatic bile duct; C79.51 Secondary malignant neoplasm of bone; C7A.1 Malignant poorly differentiated neuroendocrine tumors; E27.9 Disorder of adrenal gland, unspecified
CPT/HCPCS: 71260; 74177; Q9967

== ENCOUNTER 2021-05-01 13:35 | Outpatient (CLI) | payer MEDICAID ==
--- NOTE | 2021-05-01 14:33 | CONSULTATION NOTE ---
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 Provider wore N95 mask. The patient continues to report right upper quadrant discomfort. He is no longer having cramping that he was previously experiencing and responded well to Levsin. He is no longer using the Levsin as needed. He has also increased his MS Contin from 50 mg nightly to 50 mg twice daily and this is significantly improved his overall comfort. He does report to some increased sedation due to the increase of morphine. He is using oxycodone up to four times per day of 5 mg tablets but this is not every day. If he has increased activity then he notes that he will need to take up to 4 tablets of 5 mg oxycodone. He had a CT performed on 04/30/2021 and is to review the results with oncologist later today regarding treatment plan. Last CT on 04/11/2021 demonstrated progressive hepatic metastatic disease as well as the large bowel containing stool consistent with constipation with no free air or free fluid. The patient's appetite has returned and he is able to eat since his constipation is now well controlled. He has adjusted his regimen to include flaxseed, fiber, MiraLAX one cap daily, and 4 tablets of senna in the evening. He is typically having a bowel movement on a daily basis that is soft without any straining. He is also having more flatus although does not perceive overall relief to right upper quadrant discomfort with this. Denies any nausea. The patient is seen in the treatment chair and [facility], well groomed and no evidence of acute distress. 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 Social History - Living Situation Living arrangement: At home Living Situation: Alone Support System: Patient is and living on [address] [facility] with family close by including his sister, Ladonna who resides in [place] and is a strong advocate for the patient and provide support. He grew up in [place]. As the patient has difficulty with cell supervisor small appliance assembly at his place of residence he prefers to have contact go through his sister, Ladonna at [phone]. Patient has been having gravel placed in his driveway by his family. He is looking forward to his son and grandson visiting in June from [place]. Enjoys walking at [facility]. Medications/Allergies - Medications Home Medications: Ambulatory Orders Medication Instructions Recorded Confirmed Fluoxetine HCl [Prozac] 40 mg PO DAILY 10/22/20 11/28/20 Lidocaine/Prilocain 2.5% Cream 10 applic TOP BID PRN #1 tu 11/12/20 11/28/20 [Emla 2.5% Cream] Lidocaine/Prilocain 2.5% Cream 1 each TP ONCE 30 Days #1 kit 11/14/20 11/28/20 [Emla 2.5% Cream] Lidocaine/Prilocain 2.5% Cream 5 applic TOP UD #1 gm 11/19/20 11/28/20 [Emla 2.5% Cream] OLANZapine [Zyprexa] 5 mg PO UD #12 tablet 11/19/20 11/28/20 Prochlorperazine Maleate 10 mg PO Q6HR PRN #30 tab 11/19/20 11/28/20 [Compazine] ondansetron HCL [Zofran] 4 mg PO Q6HR PRN #30 tab 11/19/20 11/28/20 Cbd Oil QPM 12/12/20 Melatonin 1 tab PO QPM 12/12/20 Senna [Senokot] 4 tab PO QPM 12/12/20 12/12/20 Multivitamin 1 tab PO DAILY 12/13/20 12/13/20 polyethylene glycoL 3350 [Miralax] 17 g PO QPM 01/02/21 01/02/21 Magnesium Hydroxide [Milk of 30 ml PO DAILY PRN MDD if no BM in 04/15/21 04/15/21 Magnesia] 48h oxyCODONE [Roxicodone] 5 - 10 mg PO Q4HR PRN 04/15/21 Morphine Sulfate [Ms Contin] 15 mg PO BID 04/17/21 04/17/21 Naloxone HCl Nasal [Narcan Nasal] PRN 04/17/21 Hyoscyamine [Levsin] 1 tab PO TID PRN 04/18/21 04/18/21 - Allergies Allergies/Adverse Reactions: Allergies Allergy/AdvReac Type Severity Reaction Status Date / Time No Known Drug Allergies Allergy Verified 05/01/21 14:45 Review of Systems - Constitutional Constitutional: reports: Fatigue, Poor appetite ( of note he has a long standing history of consuming 1 meal per day--has returned to his baseline), Weight loss (perceives weight loss; weight 76.9kg today 05/01/21). denies: Fever - Ears, Nose & Throat Ears, Nose & Throat: denies: Hearing loss - Cardiovascular Cardiovascular: denies: Edema - Respiratory Respiratory: reports: Cough (occasional) - Gastrointestinal Gastrointestinal: reports: Constipation (improved, see HPI), Other (Appetite has improved). denies: Abdominal pain, Abdominal distention, Black stools, Nausea, Vomiting - Genitourinary Genitourinary: denies: Dysuria - Musculoskeletal Musculoskeletal: denies: Assistive devices - Neurological Neurological: denies: Headache - Psychiatric Psychiatric: reports: Depression (on Prozac), Anxiety - All Other Systems All Other Systems: reports: Reviewed and negative Physical Exam - Vital Signs Temperature: 36 C Pulse Rate: 70 O2 Saturation: 99 Blood Pressure: 147/70 - Physical Exam General Appearance: positive: No acute distress, Alert Eyes Bilateral: positive: Normal inspection ENT: positive: No signs of dehydration Neck: positive: Trachea midline Cardiovascular: positive: Regular rate & rhythm Respiratory: positive: No respiratory distress, Breath sounds nml Abdomen: positive: Non-tender, Soft, Nml bowel sounds. negative: Organomegaly, Distended Skin: positive: No symptoms Extremities: positive: No pedal edema Neurologic/Psychiatric: positive: Oriented x3, Mood/affect nml Palliative Care - POLST Patient has POLST: No Pain: Pain improved (RUQ pain improved with increase of MS COntin to 15mg BID) Tiredness/Fatigue: Moderate (4-6) Drowsiness/Sedation: Moderate (4-6) Nausea: None Anorexia: Mild (1-3) Sleep: Sleeps well Constipation: Opoid induced, Managed - Palliative Care Discussion: Patient remains focused on getting through each day. He remains reluctant in discussing future advance care planning given his on oncologic diagnosis. He continues to deny expressing any fears or concern with this provider and therefore, will continue to build rapport. He does have underlying anxiety and therefore best to continue to build rapport before broaching larger and more extensive discussions regarding advanced care planning. Patient has responded positively to introduction and then increase of MS Contin for his pain at 15 mg twice daily. He will utilize his oxycodone up to 4 times per day but this is not every day. He is also found the right bowel regiment to suit him to have almost a daily, soft bowel movement and his appetite has returned reducing his overall symptom burden related to his small cell carcinoma. Impression and Recommendations - Palliative Care Impression: This is a 60-year-old man who unfortunately was diagnosed with extensive stage small cell carcinoma of the right lung who is undergoing palliative chemotherapy and tolerating this treatment well. His symptom burden of pain of neoplastic origin to right upper quadrant and constipation has significantly improved. He has titrated and found a bowel regimen that is effective and has tolerated introduction of long-acting opioid therapy MS Contin 15 mg twice daily. We will need to continue to build rapport and introduce advance care planning slowly as trust develops. Palliative care will continue provide support, care coordination, pain and symptom management as well as anticipatory guidance. Recommendations/Counseling Done: 1. Pain of neoplastic origin, specifically to right upper quadrant in the setting of liver metastases. Continue MS Contin 15 mg twice daily. Continue to set expectations regarding the patient's concerns revolving around long-term opioid use and continued to focus on optimizing comfort and function and reorienting the patient regarding this. New Rx for MS Contin 50 mg twice daily sent to pharmacy as previous Rx was once daily dosing and likely will require prior authorization. Continue oxycodone 5 to 10 mg every 4 hours as needed for breakthrough pain and patient to continue to record. Has Narcan available in the home. Continue to monitor and adjust pain regimen based on patient's response. May trial BenGay to right upper quadrant for relief. If noted increasing discomfort may trial pregabalin as additional support for pain relief if liver metastases are contributing to a neuropathic component. 2. Constipation. Greatly improved. Goal remains to have a daily, soft bowel movement. Continue MiraLAX 17 g in the evening, senna 4 tablets in the evening, flaxseed, and fiber. Patient is aware to utilize milk of magnesia 30 mL if no bowel movement in 48 hours. Reviewed dose titration of MiraLAX and senna in the future. Continue to encourage ambulation for bowel regularity. 3. Gas pains. Improved with routine defecation. Does have Levsin 0.125 mg available take 1 capsule up to 3 times a day for GI spasms. 4. Extensive stage small cell carcinoma the right lung. Presently undergoing palliative treatment. Followed by oncology. To review recent CT scans with oncology today that were obtained on 04/30/2021. 5. Advanced care planning. Patient continues to remain reluctant discussing advance care planning for the future. Is looking forward to a visit from his son and grandson in June 2021. Continues to prefer seeing each day as it comes. We will need to continue to build rapport and tease out goals and advance care planning in the future as trust develops. Patient's sister, Ladonna, previously expressed recognizing that the patient has a terminal condition and recognizes this and the patient continues to have extensive support from his family who reside locally. Total time spent 35 minutes with greater than 50% of the spent in counseling and coordination of care with the patient; review of plan of care with RN and oncology; supportive listening; setting expectations regarding pain and symptom management; medication and symptom management and anticipatory guidance. Disclaimer: The chart note was formulated using voice recognition technology and unfortunately sound alike errors may occur.
== END 2021-05-01 13:36 | disposition home or self-care (01) ==
LOC: PC 13:35
PROVIDERS: ATTEND Nurse Practitioner Family
DX: Z51.5 Encounter for palliative care (principal); G89.3 Neoplasm related pain (acute) (chronic); K59.03 Drug induced constipation; T40.2X5A Adverse effect of other opioids, initial encounter; R14.3 Flatulence; R53.83 Other fatigue; F32.A Depression, unspecified; C34.91 Malignant neoplasm of unspecified part of right bronchus or lung; C78.7 Secondary malignant neoplasm of liver and intrahepatic bile duct; Z72.0 Tobacco use; F10.11 Alcohol abuse, in remission; Z79.899 Other long term (current) drug therapy; Z79.891 Long term (current) use of opiate analgesic
CPT/HCPCS: 99214

== ENCOUNTER 2021-05-22 09:55 | Outpatient (CLI) | payer MEDICAID ==
--- NOTE | 2021-05-22 19:41 | CONSULTATION NOTE ---
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 Provider wore N95 mask. Last week, the patient was having increased pain and therefore, his MS Contin was increased from 15 mg twice daily to 3 times daily. He noticed a positive response with this and was able to have improved function as his pain was controlled. He typically finds that after taking the MS Contin he feels better in approximately 1 hour and is able to move with ease. He is presently taking apprx 4 oxycodone per day. 2 days ago, the patient was having increased pain which resulted in him only taking his MS Contin Twice a day, decreased oral intake and some constipation that led to a perpetual cycle. His Sister Ladonna has been on top of the patient in regards to following through when taking his medications and today he reports he feels significantly better. Today he reports his pain at being approximately 5 out of 10. Goal pain is 4-5 out of 10. Due to the inactivity and constipation the patient has not eaten much in the last few days per his report. He did have a large bowel movement yesterday. Because of the above reported pain he has been off of his regiment with taking his bowel protocol and now realizes how that can inadvertently affect him. He has added fiber to his regimen including flaxseed and this may have been a contributing component to his constipation with the fiber. 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 Social History - Living Situation Living arrangement: At home Living Situation: Alone Support System: Patient is and living on [address] with family close by including his sister, Ladonna who resides in [place] and is a strong advocate for the patient and provide support. He grew up in [place]. As the patient has difficulty with cell corporate receptionist at his place of residence he prefers to have contact go through his sister, Ladonna at [phone]. The patient's sister and [id number] on the property that he lives on. He has recently had a new toilet put in that is higher for ease of transferring on and off. The patient's Sister Ladonna is having a camper fixed up to be on the property in order to stay close by however, the patient is reluctant regarding this. The patient is looking forward to his son and grandson visiting in mid June to the from [place]. Medications/Allergies - Medications Home Medications: Ambulatory Orders Medication Instructions Recorded Confirmed Fluoxetine HCl [Prozac] 40 mg PO DAILY 10/22/20 11/28/20 Lidocaine/Prilocain 2.5% Cream 10 applic TOP BID PRN #1 tu 11/12/20 11/28/20 [Emla 2.5% Cream] Lidocaine/Prilocain 2.5% Cream 1 each TP ONCE 30 Days #1 kit 11/14/20 11/28/20 [Emla 2.5% Cream] Lidocaine/Prilocain 2.5% Cream 5 applic TOP UD #1 gm 11/19/20 11/28/20 [Emla 2.5% Cream] OLANZapine [Zyprexa] 5 mg PO UD #12 tablet 11/19/20 11/28/20 Prochlorperazine Maleate 10 mg PO Q6HR PRN #30 tab 11/19/20 11/28/20 [Compazine] ondansetron HCL [Zofran] 4 mg PO Q6HR PRN #30 tab 11/19/20 11/28/20 Cbd Oil QPM 12/12/20 Melatonin 1 tab PO QPM 12/12/20 Senna [Senokot] 4 tab PO QPM 12/12/20 12/12/20 Multivitamin 1 tab PO DAILY 12/13/20 12/13/20 polyethylene glycoL 3350 [Miralax] 17 g PO QPM 01/02/21 01/02/21 Magnesium Hydroxide [Milk of 30 ml PO DAILY PRN MDD if no BM in 04/15/21 04/15/21 Magnesia] 48h oxyCODONE [Roxicodone] 5 - 10 mg PO Q4HR PRN 04/15/21 Morphine Sulfate [Ms Contin] 15 mg PO TID 04/17/21 04/17/21 Naloxone HCl Nasal [Narcan Nasal] PRN 04/17/21 Hyoscyamine [Levsin] 1 tab PO TID PRN 04/18/21 04/18/21 - Allergies Allergies/Adverse Reactions: Allergies Allergy/AdvReac Type Severity Reaction Status Date / Time No Known Drug Allergies Allergy Verified 05/01/21 14:45 Review of Systems - Constitutional Constitutional: reports: Fatigue, Poor appetite (see HPI), Weight stable (74.3 4kg 05/22/21) - Ears, Nose & Throat Ears, Nose & Throat: denies: Dentures - Cardiovascular Cardiovascular: denies: Chest pain, Edema - Respiratory Respiratory: reports: Cough (occasional). denies: Wheezing - Gastrointestinal Gastrointestinal: reports: Abdominal pain, Constipation (see HPI), Poor appetite. denies: Nausea, Vomiting - Genitourinary Genitourinary: denies: Dysuria - Musculoskeletal Musculoskeletal: denies: Assistive devices, Transfer issues - Integumentary Integumentary: denies: Rash - Neurological Neurological: reports: General weakness. denies: Headache - Psychiatric Psychiatric: reports: Depression (on Prozac), Anxiety - All Other Systems All Other Systems: reports: Reviewed and negative Physical Exam - Vital Signs Pulse Rate: 94 O2 Saturation: 92 Blood Pressure: 128/74 - Physical Exam General Appearance: positive: No acute distress, Alert Eyes Bilateral: positive: Normal inspection ENT: positive: No signs of dehydration Neck: positive: Trachea midline Cardiovascular: positive: Regular rate & rhythm, No murmur Respiratory: positive: No respiratory distress, Breath sounds nml, Other (left wanda-cath) Abdomen: positive: Non-tender, Soft, Nml bowel sounds Skin: positive: No symptoms Extremities: positive: No pedal edema Neurologic/Psychiatric: positive: Oriented x3, Mood/affect nml Palliative Care - POLST Patient has POLST: No Pain: Pain improved (when patient is consistent with taking his MS COntin 15mg TID pain is signifcantly improved and at level 4-5/10 which is acceptable to patient.) Tiredness/Fatigue: Severe (7-10) Drowsiness/Sedation: Severe (7-10) Nausea: Mild (1-3) Anorexia: Moderate (4-6) Dyspnea: Mild (1-3) Depression: Mild (1-3) Anxiety: Moderate (4-6) Feelings of wellbeing/Perceived Quality of Life: Good Sleep: Sleeps well Constipation: Opoid induced, Managed, Intermittent constipation - Palliative Care Discussion: Patient has responded positively to his increase of MS Contin to 15 mg 3 times daily when he is consistent with taking his medication. Lengthy discussion was had that he needs to be consistent in taking his MS Contin and not skipping. Strategy to have his medication at the bedside for ease of administration prior to getting up first thing in the morning. Given his pain is controlled to goal no need to increase his MS Contin at the present time. He has been off his regimen for his bowel protocol. Discussion had with eliminating fiber gradually and staying on top of administration of his MiraLAX and senna. Reviewed bowel titration again and the need to be on top of having a daily, soft bowel movement to break the cycle when he then has increased abdominal pain. Patient had some elevation with his liver enzymes reported today. Being monitored by oncology. He expresses no acute concerns at the present time regarding this and will continue to monitor. Impression and Recommendations - Palliative Care Impression: This is a 60-year-old man who unfortunately was diagnosed with extensive stage small cell carcinoma of the right lung who is undergoing palliative chemotherapy and tolerating treatment however, now with transaminitis. His symptom burden of pain of neoplastic origin to the right upper quadrant and constipation has significantly improved when he is on his appropriate regimen and not skipping. Lengthy discussion today was had regarding staying on his medication. We will need to continue to build rapport and introduce advance care planning slowly as trust develops. Palliative care will continue to provide support, care coordination, pain and symptom management as well as anticipatory guidance. Recommendations/Counseling Done: 1. Pain of neoplastic origin, specifically to the right upper quadrant in the setting of liver metastasis. Continue MS Contin 15 mg 3 times daily. Continue oxycodone 5 to 10 mg every 4 hours as needed for breakthrough pain and patient to continue to record. Has Narcan prescribed. Continue to monitor and adjust pain regimen based on the patient's response. If noted increasing discomfort may trial pregabalin as additional support for pain relief if liver metastases are contributing to neuropathic component. 2.Transmitis. Being monitored by oncology. If worsening abdominal pain in the setting of present liver function tests plan would be for CT of abdomen and pelvis. 3. Constipation. Goal remains to have a daily, soft bowel movement. Lengthy discussion had again today regarding bowel titration and the need to stay on top of bowel regimen and not discontinuing medications. Continue MiraLAX 17 g in the evening, senna 4 tablets in the evening, flaxseed and gradually discontinue fiber as potential contributor to constipation. Patient is aware to utilize milk of magnesia 30 mL if no bowel movement in 48 to 72 hours. 4. Extensive stage small cell carcinoma of the lung. Presently undergoing palliative treatment. Followed by oncology. Total time spent 30 minutes with greater than 50% of the spent in counseling and coordination of care with the patient and sister; review of plan of care with LINDSEY Galicia in the [facility], supportive listening, setting expectations regarding the need for routine with bowel and pain regimen; pain and symptom management as well as anticipatory guidance. Disclaimer: The chart note was formulated using voice recognition technology and unfortunately sound alike errors may occur.
== END 2021-05-22 09:56 | disposition home or self-care (01) ==
LOC: PC 09:55
PROVIDERS: ATTEND Nurse Practitioner Family
DX: Z51.5 Encounter for palliative care (principal); G89.3 Neoplasm related pain (acute) (chronic); Z79.891 Long term (current) use of opiate analgesic; Z79.899 Other long term (current) drug therapy; K59.03 Drug induced constipation; T40.2X5A Adverse effect of other opioids, initial encounter; C78.7 Secondary malignant neoplasm of liver and intrahepatic bile duct; C34.91 Malignant neoplasm of unspecified part of right bronchus or lung; R53.1 Weakness; R53.83 Other fatigue; R74.01 Elevation of levels of liver transaminase levels; F10.11 Alcohol abuse, in remission; Z72.0 Tobacco use
CPT/HCPCS: 99214

== ENCOUNTER 2021-06-12 12:18 | Outpatient (CLI) | payer MEDICAID ==
--- NOTE | 2021-06-12 16:07 | CONSULTATION NOTE ---
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 Provider wore N95 mask. The patient previously had been reporting right upper quadrant pain that has been controlled with MS Contin 15 mg 3 times daily and has had a positive response. However, the patient was noted to have increased upper abdominal discomfort bandlike without relief with defecation. He has not tried his Levsin for potential cramping. Reports that he is maintaining his bowels and is taking 1 cap of MiraLAX in the morning and 4 sinus in the morning. He is having positive flatus. Patient perceives that there is a correlation between his upper abdominal discomfort and pain medication. Therefore, he has not eaten anything since yesterday nor has he taken his oxycodone or MS Contin. He perceives that the pain in his abdomen is worse than his right upper quadrant pain. The patient does not feel that this is related to his cancer. Patient's sister, who was unaware that the patient had stopped his MS Contin and nor was he taken his oxycodone. He typically takes oxycodone for times per day which is approximately 20 mg/day. Since he stopped his MS Contin he has not noticed any increased tremors, brain fog, or sweating. Reemphasized again today with the patient the need to continue his medication as prescribed to avoid withdrawal effects. 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 Social History - Living Situation Living arrangement: At home Living Situation: Alone Support System: Patient is and living on [address] with family close by including his sister, Ladonna who resides in [place] and is a strong advocate for the patient and provide support. He grew up in [place]. As the patient has difficulty with cell receptionist doctor's office at his place of residence he prefers to have contact go through his sister, Ladonna at [phone]. The patient's sister and [id number] on the property that he lives on. He is looking forward to having his son and grandson visit next week from [place]. Medications/Allergies - Medications Home Medications: Ambulatory Orders Medication Instructions Recorded Confirmed Fluoxetine HCl [Prozac] 40 mg PO DAILY 10/22/20 11/28/20 Lidocaine/Prilocain 2.5% Cream 10 applic TOP BID PRN #1 tu 11/12/20 11/28/20 [Emla 2.5% Cream] Lidocaine/Prilocain 2.5% Cream 1 each TP ONCE 30 Days #1 kit 11/14/20 11/28/20 [Emla 2.5% Cream] Lidocaine/Prilocain 2.5% Cream 5 applic TOP UD #1 gm 11/19/20 11/28/20 [Emla 2.5% Cream] OLANZapine [Zyprexa] 5 mg PO UD #12 tablet 11/19/20 11/28/20 Prochlorperazine Maleate 10 mg PO Q6HR PRN #30 tab 11/19/20 11/28/20 [Compazine] ondansetron HCL [Zofran] 4 mg PO Q6HR PRN #30 tab 11/19/20 11/28/20 Cbd Oil QPM 12/12/20 Melatonin 1 tab PO QPM 12/12/20 Senna [Senokot] tab PO MDD .4tab in AM, 2tab in PM 12/12/20 12/12/20 Multivitamin 1 tab PO DAILY 12/13/20 12/13/20 polyethylene glycoL 3350 [Miralax] g PO MDD .17g AM, 8.5g in PM 01/02/21 01/02/21 Magnesium Hydroxide [Milk of 30 ml PO DAILY PRN MDD if no BM in 04/15/21 04/15/21 Magnesia] 48h oxyCODONE [Roxicodone] 5 - 10 mg PO Q4HR PRN 04/15/21 Morphine Sulfate [Ms Contin] 15 mg PO BID 04/17/21 04/17/21 Naloxone HCl Nasal [Narcan Nasal] PRN 04/17/21 Hyoscyamine [Levsin] 1 tab PO TID PRN 04/18/21 04/18/21 - Allergies Allergies/Adverse Reactions: Allergies Allergy/AdvReac Type Severity Reaction Status Date / Time No Known Drug Allergies Allergy Verified 05/01/21 14:45 Review of Systems - Constitutional Constitutional: reports: Fatigue, Poor appetite (see HPI), Diaphoresis, Weight loss (157.7lb 06/12/2021; 74.34kg 05/22/21). denies: Fever, Chills - Ears, Nose & Throat Ears, Nose & Throat: denies: Hearing aids - Cardiovascular Cardiovascular: denies: Chest pain, Edema - Respiratory Respiratory: reports: Cough (occasional), Other (continues to smoke cigarrettes) - Gastrointestinal Gastrointestinal: reports: Abdominal pain, Constipation, Nausea, Poor appetite, Other (at baseline will consume one meal per day). denies: Vomiting - Musculoskeletal Musculoskeletal: denies: Assistive devices, Transfer issues - Integumentary Integumentary: reports: Dryness - Neurological Neurological: denies: Headache - Psychiatric Psychiatric: reports: Depression (on Prozac), Anxiety - Endocrine Endocrine: reports: Other (is cold easily) - All Other Systems All Other Systems: reports: Reviewed and negative Physical Exam - Vital Signs Temperature: 36.3 C Pulse Rate: 77 O2 Saturation: 100 (on RA) Blood Pressure: 146/92 - Physical Exam General Appearance: positive: No acute distress, Alert Eyes Bilateral: positive: Normal inspection ENT: positive: No signs of dehydration Neck: positive: Trachea midline Cardiovascular: positive: Regular rate & rhythm Abdomen: positive: Soft, Nml bowel sounds, Tenderness (upper upper quadrant with increased firmness of liver on palpation) Extremities: positive: Full ROM, No pedal edema, Other (Visible muscular a trophy) Neurologic/Psychiatric: positive: Oriented x3, Mood/affect nml (at times patient will avoid eye contact) Palliative Care - POLST Patient has POLST: No Pain: Pain worsening (upper abdomen--has stopped his MS Contin and oxycodone for the last 1.5 days feeling it is contributing to his pain and could be due to constipation.) Tiredness/Fatigue: Moderate (4-6) Drowsiness/Sedation: Moderate (4-6) Nausea: Moderate (4-6) Anorexia: Moderate (4-6) Dyspnea: Moderate (4-6) Depression: Moderate (4-6) Anxiety: Moderate (4-6) Feelings of wellbeing/Perceived Quality of Life: Fair Constipation: Yes, Opoid induced, Managed - Palliative Care Discussion: Patient in the past has not been consistent with taking his MS Contin and now perceives that it is contributing to his upper abdominal pain and potentially some constipation despite moving his bowels regularly. Emphasized today the importance that he cannot abruptly stop his long-acting opioid therapy due to risk of withdrawal symptoms and this was reviewed at length with understanding verbalized. Given the patient's underlying feels discussed and in agreement to reduce MS Contin to 15 mg twice daily and continue oxycodone as needed for breakthrough pain every 4 hours if needed. The patient has also demonstrated weight loss with underlying anorexia and nausea in the setting of chemotherapy. At baseline, he only consumes 1 meal. Discussed a return clerk referral however, patient declines. Discussed utilizing Ensure or a protein drink at least daily to increase protein and caloric intake. Given the patient's underlying concerns regarding constipation again, I discussed titration of MiraLAX and senna. But given the patient has not titrated independently advised to increase MiraLAX to 1 cap in the morning and half a cap in the evening. Continue senna 4 tablets in the morning and add 2 tablets in the evening. We will continue to titrate and adjust accordingly. Broached with patient that some of his abdominal pain may be a sign of disease p rogression which is not something that he had thought of previously. Continues to be averse about talking about his underlying diagnosis and prognosis. Continue to build rapport and discussed this patient allows. On previous conversations independently, the patient's sister, Ladonna appreciates the overall prognosis as previously reviewed by oncology. Results - Lab Results Lab results reviewed: Yes Lab and Imaging Results: 06/12/2021 Sodium 134, potassium 3.8, BUN 7, creatinine 0.7, glucose 122, total bilirubin 1.1, AST 154, ALT 74, alk phos 395, WBC 7.5, hemoglobin 12.8, hematocrit 38.8%, platelet 365 Impression and Recommendations - Palliative Care Impression: This is a 60-year-old man who unfortunately was diagnosed with extensive stage small cell carcinoma of the right lung who is undergoing palliative chemotherapy. He is experiencing transaminitis, constipation, pain of neoplastic origin however, just continued his MS Contin without discussion with her provider, and constipation. Lengthy discussion today was had regarding continuing his medication as prescribed. Due to underlying concern and fear expressed by the patient will reduce MS Contin to 15 mg twice daily. Increase the patient's bowel regimen as noted below. We will continue to build rapport, provide support, care coordination, pain and symptom management as well as anticipatory guidance. Recommendations/Counseling Done: 1. Pain of neoplastic origin in the setting of liver metastases. Patient with increased firmness of liver on palpation Tat[place] and likely the source of his increased reports of pain versus constipation. Given increased discomfort discussion was had with and oncology who will be ordering additional diagnostic imaging with CT of the abdomen and pelvis for evaluation of disease progression. Given the patient's underlying fear regarding MS Contin contributing to his pain and constipation will reduce MS Contin to 50 mg twice daily. Lengthy discussion was had with the patient that he needs to avoid abrupt cessation due to risk of withdrawal with understanding verbalized. Continue oxycodone 5 to 10 mg every 4 hours as needed for breakthrough pain and continue to monitor. Has Narcan prescribed. 2. Constipation. Goal remains to have a daily, soft bowel movement. 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 Continue MiraLAX 1 cap in the morning and administer half a cap in the evening. Continue senna 4 tablets in the morning and add 2 tablets in the evening. Patient is aware to utilize milk of magnesia 30 mL if no bowel movement in 48 to 72 hours. 3. Transaminitis, unclear etiology with concern for disease progression. Oncology aware. 4. Extensive stage small cell carcinoma of the lung. Presently undergoing palliative treatment. Followed by oncology. 5. Advanced care planning. Patient does not have POLST in place or healthcare directives. Previously, the patient has not been open to discuss [place] regarding his prognosis and advance care planning. Given potential for disease progression after repeat imaging will begin to readdress with the patient and his sister. Total time spent 35 minutes with greater than 50% is spent in counseling coronation of care with the patient, sister, JEANNIE RN, oncologist; review of lab results; examination of patient; review of pain and symptom management; and anticipatory guidance. Disclaimer: The chart note was formulated using voice recognition technology and unfortunately sound alike errors may occur.
== END 2021-06-12 12:19 | disposition home or self-care (01) ==
LOC: PC 12:18
PROVIDERS: ATTEND Nurse Practitioner Family
DX: Z51.5 Encounter for palliative care (principal); G89.3 Neoplasm related pain (acute) (chronic); C34.91 Malignant neoplasm of unspecified part of right bronchus or lung; C78.7 Secondary malignant neoplasm of liver and intrahepatic bile duct; K59.00 Constipation, unspecified; R74.01 Elevation of levels of liver transaminase levels; Z79.899 Other long term (current) drug therapy
CPT/HCPCS: 99214

== ENCOUNTER 2021-07-24 09:44 | Outpatient (CLI) | payer MEDICAID ==
--- NOTE | 2021-07-24 12:40 | CONSULTATION NOTE ---
Palliative Care Follow Up - Referral Referring Provider: Dr. Rodolfo Day Time of Visit: [id number] Referral setting: [facility] Referral Reason: Change in Condition - Information Sources History/Review of Systems obtained from: Patient, Family (sisters, including advocate Ladonna, brother Hu, mother) - History of Present Illness Update Past Medical History: Past medical history includes chronic tobacco use, COPD, history of alcohol abuse in remission, depression, small cell carcinoma of the right lung 10/2020. Social History - Living Situation Living arrangement: At home Living Situation: Alone Support System: Patient is and living on [address] with family close by including his sister, Ladonna who resides in [place] and is a strong advocate for the patient and provide support. He grew up in [place]. As the patient has difficulty with cell medical records receptionist at his place of residence he prefers to have contact go through his sister, Ladonna at [phone]. The patient's sister and [id number] on the property that he lives on. Medications/Allergies - Medications Home Medications: Ambulatory Orders Medication Instructions Recorded Confirmed Fluoxetine HCl [Prozac] 40 mg PO DAILY 10/22/20 11/28/20 Lidocaine/Prilocain 2.5% Cream 10 applic TOP BID PRN #1 tu 11/12/20 11/28/20 [Emla 2.5% Cream] Lidocaine/Prilocain 2.5% Cream 1 each TP ONCE 30 Days #1 kit 11/14/20 11/28/20 [Emla 2.5% Cream] Lidocaine/Prilocain 2.5% Cream 5 applic TOP UD #1 gm 11/19/20 11/28/20 [Emla 2.5% Cream] OLANZapine [Zyprexa] 5 mg PO UD #12 tablet 11/19/20 11/28/20 Prochlorperazine Maleate 10 mg PO Q6HR PRN #30 tab 11/19/20 11/28/20 [Compazine] ondansetron HCL [Zofran] 4 mg PO Q6HR PRN #30 tab 11/19/20 11/28/20 Cbd Oil QPM 12/12/20 Melatonin 1 tab PO QPM 12/12/20 Senna [Senokot] tab PO MDD .4tab in AM, 2tab in PM 12/12/20 12/12/20 Multivitamin 1 tab PO DAILY 12/13/20 12/13/20 polyethylene glycoL 3350 [Miralax] g PO MDD .17g AM, 8.5g in PM 01/02/21 01/02/21 Magnesium Hydroxide [Milk of 30 ml PO DAILY PRN MDD if no BM in 04/15/21 04/15/21 Magnesia] 48h oxyCODONE [Roxicodone] 5 - 10 mg PO Q4HR PRN 04/15/21 Morphine Sulfate [Ms Contin] 15 mg PO BID 04/17/21 04/17/21 Naloxone HCl Nasal [Narcan Nasal] PRN 04/17/21 Hyoscyamine [Levsin] 1 tab PO TID PRN 04/18/21 04/18/21 - Allergies Allergies/Adverse Reactions: Allergies Allergy/AdvReac Type Severity Reaction Status Date / Time No Known Drug Allergies Allergy Verified 07/24/21 11:28 Review of Systems - Constitutional Constitutional: reports: Fatigue, Poor appetite, Weight stable - Respiratory Respiratory: reports: Cough - Gastrointestinal Gastrointestinal: reports: Abdominal pain, Constipation, Poor appetite, Other - Psychiatric Psychiatric: reports: Depression (on Prozac), Anxiety - All Other Systems All Other Systems: reports: Reviewed and negative Physical Exam - Physical Exam Extremities: positive: No pedal edema Palliative Care - POLST Patient has POLST: No POLST Status: Full Code - Advance Care Planning Patient has a history of small cell lung cancer of the right lung diagnosed 10/2020 and unfortunately today, came is significantly jaundiced with elevated liver enzymes and lengthy conversation had with oncologist regarding potential complications immunotherapy versus obstruction versus disease progression and now looking at weeks with prognosis. Patient unfortunately, it has not been open regarding discussion with advanced care planning and having a more positive outlook. Today, patient was transitioned to the emergency department for further evaluation and work-up due to her acute elevated liver enzymes and proceed from there regarding future planning. Today fortunately, the patient was surrounded by his family, his 2 brothers, 2 sisters and mother were present for the news with the oncologist. This was not unexpected for them in regards to prognosis has evaluated But this was coming. Sister, Ladonna has been an excellent advocate for the patient and this week attempted to make more headway regarding advance care planning. The patient has expressed that he wishes to be cremated and have his ashes spread and deception past. He presently resides in a cabin with an out house His sister and [id number]'s property. Moving forward, due to his dec onditioning would not be appropriate to return to that setting for additional oversight and caregiving needs. Patient's family was introduced to the role of hospice services and this is something they are amenable to moving forward with. Also spoke at length with the patient's family given the patient was in the emergency department and unable to participate in conversation due to abdominal discomfort and elevated liver enzymes have bowel and not having durable healthcare perpetrating and who would be difficult to take regarding next of kin as well as POLST. Patient has not expressed despite questioning from his family members regarding resuscitation or not and discussed that if the patient does elect to transition to hospice services in the near future as long as goals align with hospice services without further interventions may continue to have a full code POLST and have a continued conversation regarding CODE STATUS with understanding verbalized. Patient's family expresses desire for the patient to have a comfortable indignant 5.surrounded by his family. Family would be extremely open to having the patient transition to his sister's home in [place] and is supported by hosp ice services there to optimize the patient's time with his son, grandson and elderly parents who have limited mobility especially his father. All of the family is on the same page however, neck steps would be to have a discussion with the patient himself regarding next steps. Family is anxiously awaiting for additional imaging to be performed by the emergency department and then moving forward with next steps. Also had lengthy discussion with the emergency department physician, Ry Butts MD as well as oncologist Rodolfo Day MD regarding plan of care as discussed above. Patient sisters being in contact with palliative care regarding neck steps and support. Questions answered and addressed and supportive listening provided to family members. Unfortunately, despite the patient's strong gilberto base there is not a vice president corporate communications support and this would be something that would be appropriate to be addressed with the patient in the near future with the role of hospice services. Family members present for discussion: sister Ladonna, sister Lian, brother Hu, mother and brother. Sister Ladonna is a strong advocate for the patient. Patient's son, Jp lives out of state in [place] Disclaimer: The chart note was formulated using voice recognition technology and unfortunately sound alike errors may occur. Time spent on Advance Care Planning (min): 60
== END 2021-07-24 09:45 | disposition home or self-care (01) ==
LOC: PC 09:44
PROVIDERS: ATTEND Nurse Practitioner Family
DX: Z51.5 Encounter for palliative care (principal); Z79.899 Other long term (current) drug therapy; Z79.891 Long term (current) use of opiate analgesic; C34.91 Malignant neoplasm of unspecified part of right bronchus or lung; R17 Unspecified jaundice; R74.8 Abnormal levels of other serum enzymes; R53.83 Other fatigue; R63.0 Anorexia; R10.9 Unspecified abdominal pain; K59.00 Constipation, unspecified; F32.A Depression, unspecified
CPT/HCPCS: 99215; 99497; 99498

== ENCOUNTER 2021-07-25 14:15 | Outpatient (CLI) | payer MEDICAID ==
--- NOTE | 2021-07-25 17:49 | CONSULTATION NOTE ---
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 Patient has had fluctuating abdominal pain, has been challenging regarding medication adherence, follow-through, and ability to track pain control and management of constipation. Patient lives on property in a small "shack" no toilet in home. Patient unfortunately presented to his oncology appointment on 07/24 with marked decline in functional status, worsening jaundice, and increasing pain as well as abdominal distention. He was sent to the emergency room, secondary to concern for Ill urinary obstruction versus immunotherapy toxicity. In the emergency room, he found rapidly progressing cancer, with MRCP showing rapidly progressive disease with biliary obstruction. Patient was given the option for transfer for biliary stenting, after much discussion, patient was sent home, though hope had been to go to sisters as it will be difficulty as patient becomes bedbound to manage in this small space. Patient is followed by primary palliative care Cindy Hadley, who unfortunately is not available today. Palliative care [employer] making home visit, hospice not available until next week. Patient very much wants to stay at home, does not want hospitalization or further intervention, family appears quite overwhelmed and will be challenged to provide care as patient rapidly progresses. Patient is sitting in chair on arrival, quite jaundiced, abdomen taut. Patient reporting pain 8-9 out of 10, this is sister had picked up new medications of hydromorphone as well as MS Contin 30 mg twice daily. Given patient's rapidly escalating pain, use of as needed pain medication use, will we will go ahead and increase to MS Contin 30 mg 3 times daily, suspect patient will not be able to take oral meds for much longer. Did discuss giving patient's MS Contin rectally if unable to swallow. Patient is admitting to mild confusion, is very withdrawn and difficult to drawing his conversation. Though does nod and understanding, as discussed patient's expected ongoing decline, need for alternative ways to support patient, including use of depends, commode, and rectal administration of medications if needed. Did discuss crushing hydromorphone, Ativan, if needed. Patient unfortunately has not done anything to take care of his advance care planning, has been quite resistant much to everyone's distress, and now unable to really provide any support at this point as is homebound. Patient's son Jp Blake is coming on Thursday, by default to [facility] law, he will be the decision maker, this would be good for I expect patient will be unable to sign paperwork when hospice admit available. His phone number is [phone]. Patient has 2 sisters and [id number] who are quite committed and providing hands-on care and keeping at home. They were quite surprised so when I told him he could not be left alone, and will need 24/7 care from this point on. We did complete a POLST with DN AR/DNI and comfort measures. Patient presents with rapidly progressive biliary obstruction, did share with sisters, most likely expected hours to days not days to weeks. , Past Medical History: Chronic tobacco use, COPD, history of alcohol abuse in remission, depression, small cell carcinoma of the right lung diagnosed 10/2020, Social History - Living Situation Living arrangement: At home Living Situation: Alone Support System: Patient is and living on [facility], his Sister Ladonna who lives in [place] none is present currently. Patient grew up in [place]. Patient is with 1 son, who is coming on Thursday through Thursday. Patient lives in a "shack", with an out house. Patient has been managing independently, but has been difficult to track with medication adherence and following through on instructions. He does depend quite a bit on his sister Ladonna, who is a good advocate for patient and provides ongoing support Medications/Allergies - Medications Home Medications: Ambulatory Orders Medication Instructions Recorded Confirmed Lidocaine/Prilocain 2.5% Cream 1 each TP ONCE 30 Days #1 kit 11/14/20 07/25/21 [Emla 2.5% Cream] ondansetron HCL [Zofran] 4 mg PO Q6HR PRN #30 tab 11/19/20 07/25/21 Senna [Senokot] 3 tab PO TID 12/12/20 12/12/20 polyethylene glycoL 3350 [Miralax] 17 gm PO DAILY 01/02/21 07/25/21 Naloxone HCl Nasal [Narcan Nasal] PRN 04/17/21 Hyoscyamine [Levsin] 1 tab PO TID PRN 04/18/21 07/25/21 Hydromorphone HCl [Dilaudid] 4 mg PO Q2H PRN #60 tablet 07/24/21 07/25/21 Haloperidol Oral Soln [Haldol Oral 0.25 ml PO Q4HR PRN 07/25/21 07/25/21 Soln] LORazepam [Ativan] 0.5 mg PO TID PRN 07/25/21 07/25/21 Magnesium Citrate 0.5 bottle PO PRN PRN 07/25/21 07/25/21 Morphine Sulfate ER [Ms Contin] 30 mg PO TID 07/25/21 Nystatin [Mycostatin] 5 ml PO QID 07/25/21 07/25/21 - Allergies Allergies/Adverse Reactions: Allergies Allergy/AdvReac Type Severity Reaction Status Date / Time No Known Drug Allergies Allergy Verified 07/24/21 11:28 Review of Systems - Constitutional Constitutional: reports: Fatigue (worsening), Weakness, Poor appetite, Night sweats, Weight loss - Eyes Eyes: reports: Blurred vision - Ears, Nose & Throat Ears, Nose & Throat: reports: Dry mouth - Cardiovascular Cardiovascular: reports: Edema, Lightheadedness, Exertional dyspnea, Decr. exercise tolerance. denies: Chest pain - Respiratory Respiratory: reports: Cough, SOB with exertion. denies: SOB at rest - Gastrointestinal Gastrointestinal: reports: Abdominal pain, Constipation (no BM x 3 days), Nausea, Bloating, Poor appetite, Early satiety, Other. denies: Vomiting - Genitourinary Genitourinary: reports: Dysuria (with dark conc. urine), Other - Musculoskeletal Musculoskeletal: reports: Muscle pain, Stiffness, Muscle weakness - Integumentary Integumentary: reports: Dryness - Neurological Neurological: reports: General weakness, Memory problems, Abnormal gait, Incoordination, Slurred speech - Psychiatric Psychiatric: reports: Depression (has not been taking consistently prozac; in drawer), Anxiety, Delusions - Endocrine Endocrine: reports: Intolerance to cold - Hematologic/Lymphatic Hematologic/Lymph: reports: Anemia - All Other Systems All Other Systems: reports: Other (limited given confusion) Physical Exam - Vital Signs Temperature: 97.8 C Pulse Rate: 88 Respiratory Rate: 16 O2 Saturation: 93 Blood Pressure: 102/80 - Physical Exam General Appearance: positive: Moderate distress, Lethargic, Cachetic Eyes Bilateral: negative: No scleral icterus (scleral icterus) ENT: positive: Oral lesions (oral thrush), Dry mucous membranes Neck: positive: Trachea midline Cardiovascular: positive: Regular rate & rhythm Respiratory: positive: Diminished throughout. negative: Wheezes Abdomen: positive: Abnml bowel sounds (distant and decreased), Tenderness, Distended, Taut Skin: positive: Jaundice, Dryness Extremities: positive: Pedal edema, Other (weak; increase difficulty with walking) Neurologic/Psychiatric: positive: Disoriented to time, Weakness, Slurred/abnml speech, Depressed mood/affect, Flat affect, Other (kept eyes closed most of visit;) Palliative Care - POLST Patient has POLST: Yes POLST Status: DNR, Comfort Measures (done at visit) Pain: Pain worsening, Location (right upper quadrant), Severity (8-9/10) Tiredness/Fatigue: Severe (7-10) Drowsiness/Sedation: Severe (7-10) Nausea: Moderate (4-6) Anorexia: Severe (7-10) Dyspnea: Moderate (4-6) Depression: Moderate (4-6) Anxiety: Moderate (4-6) Feelings of wellbeing/Perceived Quality of Life: Poor, Worsening Sleep: Other (unknown) Constipation: Yes, Opoid induced, Unmanaged Performance Status: Patient has had a rapid decline in performance status, is only ambulating short distances, does complain of dizziness. Has been mostly chair or bedbound.I suspect patient has not been showing the extent of his disabilities, and most concerning is how patient is going to toilet currently. - Palliative Care Discussion: Started conversation with patient asking what he understands about his current condition, does understand the cancer is bad "and this is it". Reiterated my understanding was that he had chosen to come home, with the understanding he would at home and transition to hospice. He did confirm this. We discussed at length in his presence with sister and him listening, expected decline, given his rapid decline over the last few days expect this to continue, that he would become weaker, bedbound, and most likely unable to swallow which would necessitate a plan for medication as well as caring for him in the small space.Recommended commode, patient was quite resistant reports he "has a bucket for that". Did provide contact numbers for both [facility] and [place] [employer], to assist in obtaining appropriate equipment.Discussed in the context of liver failure with biliary obstruction, expect decline to be quite quick, encouraged patient if there was any legal documents or anything he needs to have signed or any when he wants to say goodbye to her have conversations with that he do that as soon as possible.We did discuss what might that be, his son is coming on Thursday, so that is reassuring. He asked to his brother come tomorrow, and provide prayers and scripture support. Sister seemed quite surprised when I said he could not be alone, that he needs 24/7 care. They have been planning to bring up RV for support, seems surprised patient needs something at this point. But given patient's confusion, unable to self administer medications, and now with new meds she acknowledged understanding. Patient remains quite resistant to having anyone "in his space".Reiterated that he was very elvi to have family that are willing to care and want to care for him to help him meet his goal which is to have a at home.Thus we discussed the POLST with DN AR/DNI and comfort focused care, reviewed at length if patient at time of is not on hospice, to call 911, and present POLST with information it is unexpected . Sister acknowledged and verbalized understanding. Did have a separate conversation with the sister regarding patient most likely will continue to deteriorate rapidly, may or may not be able to enlist help of hospice in a timely way, multiple conversations regarding how to manage patient's decline and written instructions provided. Sister Ladonna was present at visit, and Sister Hanane and her were on the phone, both appropriately overwhelmed but committed to trying to make this work. 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 Patient presents now with escalating pain, biliary obstruction, and functional decline, and mild confusion.Patient is to transition to hospice, though may not make it in the context it looks like he has most likely hours to days. Family is committed to helping patient meet his goals, did have a at his "home". Palliative care providing visit to provide counseling regarding pain and symptom management, anticipatory guidance for impending decline, and transition plan for end-of-life. Recommendations/Counseling Done: 1. Pain of neoplastic origin. This is multifactorial, patient presents with worsening ascites, biliary obstruction, right upper quadrant pain and tenderness as well as constipation. Patient reports 8 out of 10 pain, unable to tell me how much she is taking of his oxycodone or his MS Contin, but does have new 30 mg MS Contin pills. Patient had been previously on MS Contin 15 mg 3 times daily, given patient's level of pain and expected further decline we will go ahead and increase to 30 mg 3 times daily, as has been taking pain pills every 2 hours. Patient does have new hydromorphone in home, 4 mg tablets, instructed may take for breakthrough pain. Because patient is rapidly declining, also instructed on rectal administration of MS Contin, and crushing hydrocodone if needed.Counseling provided to sister, patient not able to manage meds independently, will need oversight and instruction. Requested they track how much hydromorphone it takes to manage pain in addition to morphine. Patient also has cramping pain that has been responsive to the Levsin, will add this to his regimen every 8 hours scheduled, as well as patient has low-grade nausea will add ondansetron every 8 hours along with senna 3 tabs for bowel.. Trying to simplify medication regimen to minimize confusion and be ability to address high symptom burden. 2. Constipation. Patient is not adherent to his current regimen, cannot tell me what he is taken or what has been effective. Given patient's high opioid intake and history of constipation, will schedule senna 3 tabs 3 times daily, patient has been instructed to take half bottle mag citrate as no BM for 3 days. 3. Oral candidiasis. Suspect patient has long-term had this, very dry mouth, cracked and white patches. Will order nystatin, instructed to trial if can, patient is somewhat lethargic and difficult following directions but may benefit even from a few doses. 4. Confusion. Patient is mildly confused, is able to answer yes/no questions, and confirm understands what is going on. Patient was able to sign the POLST and was aware of what he was signing. Given patient's biliary obstruction, expected further deterioration. Did order Haldol 0.25 mils with instructions to use for agitation as well as lorazepam if patient needs for anxiety. 5. Advanced care planning. Patient did not complete his healthcare directives, nor does have a DPOA. His parents are on his bank account, but no other real identifiable estate issues identified. Patient's son is coming this Thursday, he can sign for hospice as he would be the appropriate DPOA with no DPOA identified. Completed POLST with DN AR/DNI and comfort measures. Discussed that this is needed in the context of identifying what patient's goals are and to have a at home. When hospice admits, will call them at time of in the meantime reviewed to call 911 to pronounce and meet them at the door with POLST and instruction patient was transitioning to hospice.Patient's brother who is a retired leather goods maker is coming tomorrow to give blessings and provide spiritual support, Pending hospice admit. Information given regarding obtaining a commode, they do have depends, will continue to provide anticipatory guidance and phone support tomorrow. Awaiting hospice admit, call into [facility] to see what their wait list is. 60 minutes with greater than 50% of this done in counseling regarding anticipatory guidance, pain and symptom management, titration of medications, recommendations for 24/7 care, as well as prognostic information shared regarding patient's pending decline
== END 2021-07-25 14:16 | disposition home or self-care (01) ==
LOC: PC 14:15
PROVIDERS: ATTEND Nurse Practitioner Adult Health
DX: Z51.5 Encounter for palliative care (principal); G89.3 Neoplasm related pain (acute) (chronic); C34.91 Malignant neoplasm of unspecified part of right bronchus or lung; C78.7 Secondary malignant neoplasm of liver and intrahepatic bile duct; K83.1 Obstruction of bile duct; Z66 Do not resuscitate; R41.0 Disorientation, unspecified; R18.8 Other ascites; K59.03 Drug induced constipation; T40.2X5A Adverse effect of other opioids, initial encounter; B37.0 Candidal stomatitis; R63.0 Anorexia; R42 Dizziness and giddiness; R68.81 Early satiety; Z72.0 Tobacco use; F10.11 Alcohol abuse, in remission; Z74.3 Need for continuous supervision
CPT/HCPCS: 99350

== ENCOUNTER 2021-07-29 07:35 | Outpatient (CLI) | payer MEDICAID | END 2021-07-29 07:36 | disposition E | LOC: EMS 07:35 ==